=== PATIENT | female | born 1970 | race Hispanic/Latino ===

== ENCOUNTER 2017-02-07 21:25 | Emergency (ER) | payer SELFPAY ==
[2017-02-07 21:48] VITALS: BP 110/78
[2017-02-07 22:04] LABS: Basophils % (Auto) 0.6 % (0.0-1.8); Eosinophils % (Auto) 1.4 % (0.0-4.3); Hematocrit 40.7 % (30.3-42.9); Hemoglobin 14.1 gm/dl (10.1-14.3); Mean Corpuscular HGB Conc 35 % (30-34); Mean Corpuscular Hemoglobin 31 pg (28-32); Mean Corpuscular Volume 88 fl (79-97); Platelet Count 178 K/mm3 (140-440); Red Blood Count 4.62 M/mm3 (3.65-5.03); Red Cell Distribution Width 13.1 % (13.2-15.2); White Blood Count 5.4 K/mm3 (4.5-11.0)
[2017-02-07 22:23] LABS: Anion Gap 16 mmol/L; Blood Urea Nitrogen 17 mg/dL (7-17); Calcium 9.1 mg/dL (8.4-10.2); Carbon Dioxide 27 mmol/L (22-30); Glucose 355 mg/dL (65-100); Potassium 4.2 mmol/L (3.6-5.0); Sodium 135 mmol/L (137-145)
== END 2017-02-07 22:40 | disposition left against medical advice (07) ==
LOC: ED 21:25
DX: R07.9 Chest pain, unspecified (principal); Z53.21 Procedure and treatment not carried out due to patient leaving prior to being seen by health care provider
CPT/HCPCS: 36415; 80048; 84484; 85025; 85379; 93005; 93010

== ENCOUNTER 2017-05-15 12:01 | Emergency (ER) | payer OTHER ==
--- NOTE | 2017-05-15 13:54 | XRay Report ---
LEFT HIP, 2 views: History: Left hip pain. The bony architecture is intact without evidence of fracture or dislocation. No significant soft tissue abnormality is seen. IMPRESSION: Normal left hip.
--- NOTE | 2017-05-15 17:07 | Emergency Department Report ---
ED Back Pain/Injury HPI - General Chief Complaint: Extremity Injury, Lower Stated Complaint: FALL Time Seen by Provider: 05/15/17 16:41 Source: patient Limitations: No Limitations - History of Present Illness Initial Comments: 46-year-old female past medical history hysterectomy, degenerative spinal disease presents with complaint of acute on chronic lower back pain. Denies fever chills abdominal pain nausea or vomiting denies dysuria or increased urinary frequency. Complaining of pain which radiates from her lower back into bilateral buttocks and leg regions. Denies bladder or bowel incontinence. Patient is fully lucid and awake alert and oriented 3. Is ambulatory but complaining of pain in lower back as she walks. States she had a fall 4 days ago. MD Complaint: back pain Onset/Timin -: days(s) Similar Symptoms Previously: Yes Place: home Radiation: buttocks, left leg, right leg Severity: moderate Severity scale (0 -10): 5 Consistency: constant Improves With: none Context: while lifting, turning/twisting, bending, fall Associated Symptoms: difficulty walking - Related Data Home Medications Medication Instructions Recorded Confirmed Last Taken metFORMIN [Glucophage] 500 mg PO DAILY 05/12/14 05/12/14 05/11/14 500 Previous Rx's Medication Instructions Recorded Last Taken Type Cyclobenzaprine [Flexeril] 5 mg PO TID PRN #14 tablet 02/23/13 05/11/14 Rx Hydrocodone Bit/Acetaminophen 1 each PO Q6H #14 tablet 02/23/13 05/11/14 Rx [Lortab 5-500 Tablet] 1 HYDROcodone/APAP 5-325 [[place] 1 each PO Q6HR PRN #20 tablet 05/12/14 Unknown Rx 5-325 mg TAB] Acetaminophen [Pain Relief] 500 mg PO Q8H PRN #30 tablet 05/15/17 Unknown Rx HYDROcodone/APAP 5-325 [[place] 1 each PO Q6HR PRN #15 tablet 05/15/17 Unknown Rx 5/325] Allergies Allergy/AdvReac Type Severity Reaction Status Date / Time aspirin Allergy Anaphylaxis Verified 02/23/13 13:00 ciprofloxacin [From Cipro] Allergy Hives Verified 05/12/14 16:33 ciprofloxacin HCl Allergy Hives Verified 05/12/14 16:33 [From Cipro] ED Review of Systems ROS: Stated complaint: FALL Other details as noted in HPI Constitutional: denies: chills, fever Eyes: denies: eye pain, eye discharge, vision change ENT: denies: ear pain, throat pain Respiratory: denies: cough, shortness of breath, wheezing Cardiovascular: denies: chest pain, palpitations Endocrine: no symptoms reported Gastrointestinal: denies: abdominal pain, nausea, diarrhea Genitourinary: denies: urgency, dysuria, discharge Musculoskeletal: back pain. denies: joint swelling, arthralgia Skin: denies: rash, lesions Neurological: denies: headache, weakness, paresthesias Psychiatric: denies: anxiety, depression Hematological/Lymphatic: denies: easy bleeding, easy bruising ED Past Medical Hx - Past Medical History Hx Heart Attack/AMI: Yes ("heart problems-takes ntg, unsure of dx") Hx Diabetes: Yes Additional medical history: family history of cardiac problems. - Surgical History Additional Surgical History: , laproscopy x2 (ovarian cysts), hysterectomy 03/24 with recurrent infections. - Social History Smoking Status: Never Smoker Substance Use Type: None - Medications Home Medications: Home Medications Medication Instructions Recorded Confirmed Last Taken Type Cyclobenzaprine [Flexeril] 5 mg PO TID PRN #14 tablet 02/23/13 05/12/14 Rx Hydrocodone Bit/Acetaminophen 1 each PO Q6H #14 tablet 02/23/13 05/12/14 Rx [Lortab 5-500 Tablet] 1 HYDROcodone/APAP 5-325 [[place] 1 each PO Q6HR PRN #20 tablet 05/12/14 Unknown Rx 5-325 mg TAB] metFORMIN [Glucophage] 500 mg PO DAILY 05/12/14 05/12/14 05/11/14 History 500 Acetaminophen [Pain Relief] 500 mg PO Q8H PRN #30 tablet 05/15/17 Unknown Rx HYDROcodone/APAP 5-325 [[place] 1 each PO Q6HR PRN #15 tablet 05/15/17 Unknown Rx 5/325] ED Physical Exam - General Limitations: No Limitations General appearance: alert, in no apparent distress - Head Head exam: Present: atraumatic, normocephalic - Eye Eye exam: Present: normal appearance, PERRL, EOMI - ENT ENT exam: Present: mucous membranes moist - Neck Neck exam: Present: normal inspection - Respiratory Respiratory exam: Present: normal lung sounds bilaterally. Absent: respiratory distress - Cardiovascular Cardiovascular Exam: Present: regular rate, normal rhythm. Absent: systolic murmur, diastolic murmur, rubs, gallop - GI/Abdominal GI/Abdominal exam: Present: soft, normal bowel sounds - Rectal Rectal exam: Present: normal rectal tone (strong rectal tone on digital rectal exam) - Extremities Exam Extremities exam: Present: normal inspection - Back Exam Back exam: Present: normal inspection - Neurological Exam Neurological exam: Present: alert, oriented X3, CN II-XII intact, normal gait - Expanded Neurological Exam Expanded Patient oriented to: Present: person, place, time Cranial nerves: EOM's Intact: Normal, Facial Sensation: Normal Cerebellar function: Finger to Nose: Normal, Heel to Diaz: Normal, Romberg: Normal Sensory exam: Upper Extremity Light Touch: Normal, Lower Extremity Light Touch: Normal Motor strength exam: RUE: 5, LUE: 5, RLE: 5, LLE: 5 Best Eye Response (Edison): (4) open spontaneously Best Motor Response (Edison): (6) obeys commands Best Verbal Response (Alonzo): (5) oriented Edison Total: 15 - Psychiatric Psychiatric exam: Present: normal affect, normal mood - Skin Skin exam: Present: warm, dry, intact, normal color. Absent: rash ED Course Vital Signs 05/15/17 05/15/17 05/15/17 12:06 21:20 21:22 Temperature 97.6 F Pulse Rate 107 H 98 H Respiratory 16 17 18 Rate Blood Pressure 118/76 Blood Pressure 120/80 [Left] O2 Sat by Pulse 96 96 Oximetry ED Medical Decision Making - Medical Decision Making A/P: Degenerative disc disease L-spine, acute on chronic lower back pain 1-case discussed with Dr. Hughes who reviewed imaging report with me. Patient has no loss of rectal tone, is ambulatory with a walker. No clinical signs of cauda equina, strength 5/5 bilateral lower extremities. 2-Tylenol when necessary, [place] when necessary 3-follow-up with orthopedics in spine surgery. I gave the patient referrals for follow-up. I advised her to return to the ED for complete loss of bladder or bowel control paralysis or inability to ambulate at all Critical care attestation.: If time is entered above; I have spent that time in minutes in the direct care of this critically ill patient, excluding procedure time. ED Disposition Clinical Impression: Degenerative lumbar spinal stenosis Lower back pain Qualifiers: Chronicity: chronic Back pain laterality: bilateral Sciatica presence: with sciatica Sciatica laterality: bilateral sciatica Qualified Code(s): M54.42 - Lumbago with sciatica, left side Sciatica Qualifiers: Laterality: bilateral Qualified Code(s): M54.31 - Sciatica, right side Disposition: TO HOME OR SELFCARE Is pt being admited?: No Does the pt Need Aspirin: No Condition: Stable Instructions: Sciatica (ED), Acute Low Back Pain (ED), Lumbar Radiculopathy (ED ), Chronic Back Pain (ED), Back Pain (ED) Prescriptions: Acetaminophen [Pain Relief] 500 mg PO Q8H PRN #30 tablet PRN Reason: Pain HYDROcodone/APAP 5-325 [[place] 5/325] 1 each PO Q6HR PRN #15 tablet PRN Reason: Pain Referrals: TOMAS MCRAE MD [Staff Physician] - 3-5 Days [facility] [Provider Group] - 3-5 Days Forms: Accompanied Note, Work/School Release Form(ED) Time of Disposition: 20:52
[2017-05-15] MEDS ORDERED: ZOFRAN ODT PO ONE (17:09)
[2017-05-15] MEDS ORDERED: NORCO 10/325 PO ONE (17:09)
--- NOTE | 2017-05-15 17:58 | Cat Scan Report ---
FINAL REPORT EXAM: CT LUMBAR SPINE WO CON HISTORY: severe lower back pain, hx of herniated disks TECHNIQUE: Spiral high-resolution unenhanced 1.25 millimeter axial images were obtained through the lumbar spine. Sagittal and coronal plane are reconstructions were performed. PRIORS: None. FINDINGS: Counting reference: Lumbosacral junction. For the purposes of this report, L4-L5 is considered the level of the iliac crest. Bone marrow/ Fracture: No evidence for acute fracture is seen. There is fragmentation of the distal tips of the right transverse process of L1 and L3. The margins appear remote however suggesting remote unfused fractures. No evidence of a lytic or blastic process in the visualized spine. Alignment: There is a levoscoliosis centered around L2-L3. T12-L1: Canal and foramina are patent. L1-L2: Canal and foramina are patent. L2-L3: Moderate disc space narrowing is present, particularly on the left side. Subchondral cyst formation is present on both sides of the disc space to the left of midline. This is associated with levoscoliosis mentioned above. Disc also is associated with a disc bulge to the left with mild encroachment of the left neuroforamen. L3-L4: Minimal central disc bulge. Canal and foramina are patent. L4-L5: Minimal central disc bulge. Canal and foramina are patent. L5-S1: Mild disc space narrowing is present with mild central disc bulge. Canal and foramina are patent. Paraspinal soft tissues: The paraspinal soft tissues show no evidence for paravertebral hematoma or soft tissue mass. Sacrum and iliac wings: Visualized portions of the sacrum and iliac wings appear intact without fracture. The presacral soft tissues are normal in appearance. There is incidental 12 x 8 mm ovoid sclerotic focus in the right ilium, probably a bone island. IMPRESSION: 1. No evidence of acute fracture. 2. Evidence for remote fractures in the right transverse process tips at L1 and L3. 3. Disc space abnormalities as noted from L2 through S1. There is significant narrowing to the left at L2-L3 with mild encroachment of the left neural foramina.
--- NOTE | 2017-05-15 18:01 | Cat Scan Report ---
FINAL REPORT EXAM: CT PELVIS WO CON HISTORY: s/p fall pain in sacral region ? fracture TECHNIQUE: Standard unenhanced CT of the pelvis at 2.5 mm axial increments PRIORS: L-spine CT 05/15/2017 FINDINGS: The visualized pelvic organs are unremarkable. The bladder is normal. The uterus has been removed. Moderate stool is present throughout the visualized colon. No evidence for retroperitoneal or pelvic lymphadenopathy seen. The visualized bowel loops have normal caliber. No soft tissue mass, fluid collection, inflammatory change, or free air is seen within the pelvis. Bony structures show a focal rounded sclerotic 1.2 x 1.3 cm focus in the right ilium. This probably represents a small bone island. Degenerative disc changes at L5-S1 are noted.. IMPRESSION: No acute abnormality of the pelvis. No evidence for fracture. Small sclerotic focus in the right ilium is probably a bone island.
[2017-05-15] MEDS ORDERED: NORCO 5/325 PO ONE (20:53)
[2017-05-16 05:42] VITALS: BP 120/80
== END 2017-05-15 21:20 | disposition home or self-care (01) ==
LOC: ED 12:01
DX: M48.061 Spinal stenosis, lumbar region without neurogenic claudication (principal); M54.42 Lumbago with sciatica, left side; M54.41 Lumbago with sciatica, right side; S39.92XA Unspecified injury of lower back, initial encounter; I25.2 Old myocardial infarction; E11.9 Type 2 diabetes mellitus without complications; Z88.6 Allergy status to analgesic agent; Z88.1 Allergy status to other antibiotic agents; W19.XXXA Unspecified fall, initial encounter; Y93.89 Activity, other specified; Y92.89 Other specified places as the place of occurrence of the external cause; Y99.8 Other external cause status
CPT/HCPCS: 72131; 72192; 99284; Q0162

== ENCOUNTER 2017-12-17 21:41 | Emergency (ER) | payer SELFPAY ==
--- NOTE | 2017-12-17 23:17 | XRay Report ---
FINAL REPORT EXAM: XR TOE(S) 2+V LT HISTORY: left toe pain s/p trauma TECHNIQUE: PRIORS: None. FINDINGS: No fracture is identified. The joint spaces are within normal limits. No focal bony lesion identified. No radiopaque foreign body seen. IMPRESSION: Negative no acute abnormality.
[2017-12-18] MEDS ORDERED: TYLENOL PO ONE (02:45)
--- NOTE | 2017-12-18 02:48 | Emergency Department Report ---
ED Lower Extremity HPI - General Chief Complaint: Extremity Injury, Lower Stated Complaint: ANXIETY Time Seen by Provider: 12/18/17 02:33 Source: patient, EMS Mode of arrival: Ambulatory Limitations: No Limitations - History of Present Illness Initial Comments: This is a 47-year-old female nontoxic, well nourished in appearance, no acute signs of distress presents to the ED with c/o of left great toe pain x2 days. Patient stated that a tree branch fell on her toe. Patient denies any other trauma. Patient denies any numbness, tingling, fever, chills, nausea, vomiting , chest pain, shortness of breath, headache, stiff neck. Patient denies any joint swelling or joint redness. Patient denies decreased range of motion. Patient stated has decreased gait due to pain. Patient stated allergies to Cipro and aspirin. PMh includes asthma, diabetes, [place], anxiety. Patient that she feels anxious but denies any suicidal homicidal medications. MD Complaint: foot injury -: days(s) (2) Injury: Toes: Left Type of Injury: blunt Place: street/outdoors Severity: mild Severity scale (0 -10): 8 Improves With: immobilization Worsens With: movement, palpation Context: direct blow Associated Symptoms: able to partially bear weight, ambulatory. denies: snap/ pop sensation, swelling, numbness, tingling, unable to bear weight - Related Data Home Medications Medication Instructions Recorded Confirmed Last Taken metFORMIN [Glucophage] 500 mg PO DAILY 05/12/14 05/12/14 05/11/14 500 Previous Rx's Medication Instructions Recorded Last Taken Type Cyclobenzaprine [Flexeril] 5 mg PO TID PRN #14 tablet 02/23/13 05/11/14 Rx Hydrocodone Bit/Acetaminophen 1 each PO Q6H #14 tablet 02/23/13 05/11/14 Rx [Lortab 5-500 Tablet] 1 HYDROcodone/APAP 5-325 [[place] 1 each PO Q6HR PRN #20 tablet 05/12/14 Unknown Rx 5-325 mg TAB] Acetaminophen [Pain Relief] 500 mg PO Q8H PRN #30 tablet 05/15/17 Unknown Rx HYDROcodone/APAP 5-325 [[place] 1 each PO Q6HR PRN #15 tablet 05/15/17 Unknown Rx 5/325] Acetaminophen 500 mg PO Q8H PRN #30 tablet 12/18/17 Unknown Rx Cyclobenzaprine HCl [Flexeril 5 MG 5 mg PO QHS #10 tab 12/18/17 Unknown Rx TAB] Sulfamethoxazole/Trimethoprim 1 each PO BID #14 tablet 12/18/17 Unknown Rx [Bactrim DS TAB] Allergies Allergy/AdvReac Type Severity Reaction Status Date / Time aspirin Allergy Anaphylaxis Verified 12/17/17 22:33 ciprofloxacin [From Cipro] Allergy Hives Verified 12/17/17 22:33 ciprofloxacin HCl Allergy Hives Verified 12/17/17 22:33 [From Cipro] ED Review of Systems ROS: Stated complaint: ANXIETY Other details as noted in HPI Constitutional: denies: chills, fever Eyes: denies: eye pain, eye discharge, vision change ENT: denies: ear pain, throat pain Respiratory: denies: cough, shortness of breath, wheezing Cardiovascular: denies: chest pain, palpitations Endocrine: no symptoms reported Gastrointestinal: denies: abdominal pain, nausea, diarrhea Genitourinary: denies: urgency, dysuria, discharge Musculoskeletal: denies: back pain, joint swelling, arthralgia Skin: denies: rash, lesions Neurological: denies: headache, weakness, paresthesias Psychiatric: denies: anxiety, depression Hematological/Lymphatic: denies: easy bleeding, easy bruising ED Past Medical Hx - Past Medical History Hx Heart Attack/AMI: Yes ("heart problems-takes ntg, unsure of dx") Hx Diabetes: Yes Hx Psychiatric Treatment: Yes (anxiety) Hx Asthma: Yes Additional medical history: family history of cardiac problems, endometriosis - Surgical History Additional Surgical History: , laproscopy x2 (ovarian cysts), hysterectomy 03/24 with recurrent infections. - Social History Smoking Status: Never Smoker Substance Use Type: None - Medications Home Medications: Home Medications Medication Instructions Recorded Confirmed Last Taken Type Cyclobenzaprine [Flexeril] 5 mg PO TID PRN #14 tablet 02/23/13 05/12/14 Rx Hydrocodone Bit/Acetaminophen 1 each PO Q6H #14 tablet 02/23/13 05/12/14 Rx [Lortab 5-500 Tablet] 1 HYDROcodone/APAP 5-325 [[place] 1 each PO Q6HR PRN #20 tablet 05/12/14 Unknown Rx 5-325 mg TAB] metFORMIN [Glucophage] 500 mg PO DAILY 05/12/14 05/12/14 05/11/14 History 500 Acetaminophen [Pain Relief] 500 mg PO Q8H PRN #30 tablet 05/15/17 Unknown Rx HYDROcodone/APAP 5-325 [[place] 1 each PO Q6HR PRN #15 tablet 05/15/17 Unknown Rx 5/325] Acetaminophen 500 mg PO Q8H PRN #30 tablet 12/18/17 Unknown Rx Cyclobenzaprine HCl [Flexeril 5 MG 5 mg PO QHS #10 tab 12/18/17 Unknown Rx TAB] Sulfamethoxazole/Trimethoprim 1 each PO BID #14 tablet 12/18/17 Unknown Rx [Bactrim DS TAB] ED Physical Exam - General Limitations: No Limitations General appearance: alert, in no apparent distress - Head Head exam: Present: atraumatic, normocephalic - Eye Eye exam: Present: normal appearance - ENT ENT exam: Present: mucous membranes moist - Neck Neck exam: Present: normal inspection - Respiratory Respiratory exam: Present: normal lung sounds bilaterally. Absent: respiratory distress - Cardiovascular Cardiovascular Exam: Present: regular rate, normal rhythm. Absent: systolic murmur, diastolic murmur, rubs, gallop - GI/Abdominal GI/Abdominal exam: Present: soft, normal bowel sounds - Extremities Exam Extremities exam: Present: normal inspection, full ROM, tenderness, normal capillary refill. Absent: joint swelling - Expanded Lower Extremity Exam Left Hip exam: Present: normal inspection, full ROM. Absent: tenderness, swelling Upper Leg exam: Present: normal inspection, full ROM. Absent: tenderness, swelling Knee exam: Present: normal inspection, full ROM. Absent: tenderness, swelling Lower Leg exam: Present: normal inspection, full ROM. Absent: tenderness, swelling Ankle exam: Present: normal inspection, full ROM. Absent: tenderness, swelling Foot/Toe exam: Present: normal inspection, full ROM, tenderness, ecchymosis. Absent: swelling, abrasion, laceration, deformity, crepidus, dislocation, erythema, amputation, puncture wound, foreign body, calcaneal tenderness, tenderness at base of 5th metatarsal, nail avulsion, subungual hematoma Neuro vascular tendon exam: Present: no vascular compromise. Absent: pulse deficit, abnormal cap refill, motor deficit, sensory deficit, tendon deficit, extremity cold to touch, pallor, abnormal 2-point discrimination, decreased fine /light touch, foot drop, peroneal nerve deficit, significant pain with passive ROM of distal joint Gait: Positive: observed and limited by pain - Back Exam Back exam: Present: normal inspection, full ROM. Absent: tenderness - Neurological Exam Neurological exam: Present: alert, oriented X3, normal gait - Psychiatric Psychiatric exam: Present: normal affect, normal mood - Skin Skin exam: Present: warm, dry, intact, normal color. Absent: rash ED Course Vital Signs 12/17/17 21:40 Temperature 98.5 F Pulse Rate 94 H Respiratory 20 Rate Blood Pressure 128/74 O2 Sat by Pulse 97 Oximetry - Reevaluation(s) Reevaluation #1: 12/18/17 02:49 Patient is speaking in full sentences with no signs of distress noted. - Consultations Consultation #1: 12/18/17 02:51 Eduardo from Psych was consulted and spoke with patient. Stated patient is okay to discharge and gave follow-up for anxiety/psych consult. ED Lower Extremity MDM - Medical Decision Making This is a 47-year-old female that presents with left great toe strain. Patient is stable and was examined by me. I referred patient to an orthopedic doctor for further evaluation for possible MRI. X-ray has been obtained and dictated by the radiologist. Patient is notified of the x-ray report with noted by the patient. Patient does have normal gait with no tenderness and no joint swelling. No ecchymosis. no joint redness or swelling. Not warm to touch. No signs of cellulites present. Patient was instructed to RICE therapy. Patient received Tylenol for pain. Patient is discharged with Tylenol. Patient also requested for Flexeril prescription because she has chronic back pain and she will be moving and that is when her back starts to hurt. At time of discharge, the patient does not seem toxic or ill in appearance. No acute signs of distress noted. Patient agrees to discharge treatment plan of care. No further questions noted by the patient. Critical care attestation.: If time is entered above; I have spent that time in minutes in the direct care of this critically ill patient, excluding procedure time. ED Disposition Clinical Impression: Strain of great toe, left Qualifiers: Encounter type: initial encounter Qualified Code(s): S96.912A - Strain of unspecified muscle and tendon at ankle and foot level, left foot, initial encounter Disposition: DC-01 TO HOME OR SELFCARE Is pt being admited?: No Does the pt Need Aspirin: No Condition: Stable Instructions: RICE Therapy (ED) Additional Instructions: Follow-up with a orthopedic doctor in 3-5 days or if symptoms worsen and continue return to emergency room as soon as possible. Take Flexeril as prescribed. Do not operate heavy machinery while taking Flexeril due to sedation Prescriptions: Cyclobenzaprine HCl [Flexeril 5 MG TAB] 5 mg PO QHS #10 tab Acetaminophen 500 mg PO Q8H PRN #30 tablet PRN Reason: Pain , Severe (7-10) Sulfamethoxazole/Trimethoprim [Bactrim DS TAB] 1 each PO BID #14 tablet Referrals: PRIMARY CAREMD [Primary Care Provider] - 3-5 Days ROSANNA KNOWLES MD [Staff Physician] - 3-5 Days [facility] [Outside] - 3-5 Days BRYNN LEYVA MD [Staff Physician] - 3-5 Days Forms: Work/School Release Form(ED)
[2017-12-18 02:50] VITALS: BP 128/74
== END 2017-12-18 02:55 | disposition home or self-care (01) ==
LOC: ED 21:41
DX: S96.912A Strain of unspecified muscle and tendon at ankle and foot level, left foot, initial encounter (principal); F41.9 Anxiety disorder, unspecified; E11.9 Type 2 diabetes mellitus without complications; J45.909 Unspecified asthma, uncomplicated; Z88.6 Allergy status to analgesic agent; Z88.8 Allergy status to other drugs, medicaments and biological substances; W14.XXXA Fall from tree, initial encounter; Y93.89 Activity, other specified; Y92.89 Other specified places as the place of occurrence of the external cause; Y99.8 Other external cause status
CPT/HCPCS: 99284

== ENCOUNTER 2018-01-13 13:59 | Emergency (ER) | payer SELFPAY ==
[2018-01-13] MEDS ORDERED: NACL 0.9% 1000 ML 1,000 ML IV ONE ×4 (14:32→17:55)
[2018-01-13] MEDS ORDERED: NITROSTAT SL PRN (14:33)
[2018-01-13] MEDS ORDERED: TYLENOL PO ONE (14:33)
[2018-01-13] MEDS ORDERED: ANTIVERT PO ONE (14:34)
--- NOTE | 2018-01-13 14:36 | Emergency Department Report ---
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 Patient presents to the ER today with complaint of chest pain and almost passing out. She reports that she was in her usual state of health, and donated plasma a few days ago. She reports feeling fine thereafter. Today, she reports standing up , waiting for a bus, and feeling like her vision was changing, and feeling like her vision was "briseyda out." She also endorses a sensation of generalized dizziness, near syncope, and fatigue. She also complains of epigastric and substernal pain, with associated shortness of breath. There is no vomiting or diaphoresis. She denies DVT, pulmonary embolus risk factors. Her symptoms are intermittent, they seem to worsen when she sits up, and decrease when she lays down. Her chest/epigastric abdominal discomfort do not appear to have exacerbating or relieving factors and they do not radiate anywhere. -: Gradual Location: chest, abdomen Radiation: non-radiation Quality: aching Consistency: intermittent Improves with: other Worsens with: other Associated Symptoms: chest pain, headaches, loss of appetite, malaise, nausea/ vomiting, shortness of breath, syncope, weakness. denies: confusion, cough, diaphoresis, fever/chills, rash, seizure - Related Data Home Medications Medication Instructions Recorded Confirmed Last Taken metFORMIN [Glucophage] 500 mg PO DAILY 05/12/14 05/12/14 05/11/14 500 Previous Rx's Medication Instructions Recorded Last Taken Type Cyclobenzaprine [Flexeril] 5 mg PO TID PRN #14 tablet 02/23/13 05/11/14 Rx Hydrocodone Bit/Acetaminophen 1 each PO Q6H #14 tablet 02/23/13 05/11/14 Rx [Lortab 5-500 Tablet] 1 HYDROcodone/APAP 5-325 [[place] 1 each PO Q6HR PRN #20 tablet 05/12/14 Unknown Rx 5-325 mg TAB] Acetaminophen [Pain Relief] 500 mg PO Q8H PRN #30 tablet 05/15/17 Unknown Rx HYDROcodone/APAP 5-325 [[place] 1 each PO Q6HR PRN #15 tablet 05/15/17 Unknown Rx 5/325] Acetaminophen 500 mg PO Q8H PRN #30 tablet 12/18/17 Unknown Rx Cyclobenzaprine HCl [Flexeril 5 MG 5 mg PO QHS #10 tab 12/18/17 Unknown Rx TAB] Sulfamethoxazole/Trimethoprim 1 each PO BID #14 tablet 12/18/17 Unknown Rx [Bactrim DS TAB] Allergies Allergy/AdvReac Type Severity Reaction Status Date / Time aspirin Allergy Anaphylaxis Verified 12/17/17 22:33 ciprofloxacin [From Cipro] Allergy Hives Verified 12/17/17 22:33 ciprofloxacin HCl Allergy Hives Verified 12/17/17 22:33 [From Cipro] ED Review of Systems ROS: Stated complaint: WEAKNESS/CHEST PAIN Other details as noted in HPI Comment: All other systems reviewed and negative ED Past Medical Hx - Past Medical History Previous Medical History?: Yes Hx Heart Attack/AMI: Yes ("heart problems-takes ntg, unsure of dx") Hx Diabetes: Yes Hx Psychiatric Treatment: Yes (anxiety) Hx Asthma: Yes Additional medical history: family history of cardiac problems, endometriosis - Surgical History Past Surgical History?: Yes Additional Surgical History: , laproscopy x2 (ovarian cysts), hysterectomy 03/24 with recurrent infections. - Social History Smoking Status: Never Smoker - Medications Home Medications: Home Medications Medication Instructions Recorded Confirmed Last Taken Type Cyclobenzaprine [Flexeril] 5 mg PO TID PRN #14 tablet 02/23/13 05/12/14 Rx Hydrocodone Bit/Acetaminophen 1 each PO Q6H #14 tablet 02/23/13 05/12/14 Rx [Lortab 5-500 Tablet] 1 HYDROcodone/APAP 5-325 [[place] 1 each PO Q6HR PRN #20 tablet 05/12/14 Unknown Rx 5-325 mg TAB] metFORMIN [Glucophage] 500 mg PO DAILY 05/12/14 05/12/14 05/11/14 History 500 Acetaminophen [Pain Relief] 500 mg PO Q8H PRN #30 tablet 05/15/17 Unknown Rx HYDROcodone/APAP 5-325 [[place] 1 each PO Q6HR PRN #15 tablet 05/15/17 Unknown Rx 5/325] Acetaminophen 500 mg PO Q8H PRN #30 tablet 12/18/17 Unknown Rx Cyclobenzaprine HCl [Flexeril 5 MG 5 mg PO QHS #10 tab 12/18/17 Unknown Rx TAB] Sulfamethoxazole/Trimethoprim 1 each PO BID #14 tablet 12/18/17 Unknown Rx [Bactrim DS TAB] ED Physical Exam - General Limitations: No Limitations General appearance: alert, in no apparent distress - Head Head exam: Present: atraumatic, normocephalic - Eye Eye exam: Present: normal appearance, PERRL, EOMI, other (visual acuity intact to finger counting, color perception, reading at a close distance). Absent: nystagmus - ENT ENT exam: Present: normal exam, normal orophraynx, mucous membranes moist, normal external ear exam - Neck Neck exam: Present: normal inspection, full ROM. Absent: tenderness, meningismus - Respiratory Respiratory exam: Present: normal lung sounds bilaterally. Absent: respiratory distress, chest wall tenderness - Cardiovascular Cardiovascular Exam: Present: regular rate, normal rhythm, normal heart sounds. Absent: bradycardia, tachycardia, irregular rhythm, systolic murmur, diastolic murmur, rubs, gallop - GI/Abdominal GI/Abdominal exam: Present: soft, normal bowel sounds. Absent: distended, tenderness, guarding, rebound, rigid, pulsatile mass - Extremities Exam Extremities exam: Present: normal inspection, full ROM, normal capillary refill , other (2+ pulses noted in the bilateral upper, lower extremities. Compartments soft. No long bony tenderness. The pelvis is stable.). Absent: tenderness, pedal edema, joint swelling, calf tenderness - Back Exam Back exam: Present: normal inspection, full ROM. Absent: tenderness, CVA tenderness (R), paraspinal tenderness, vertebral tenderness - Neurological Exam Neurological exam: Present: alert, oriented X3, CN II-XII intact (there is no pass pointing. There is normal [id number].), other (Extraocular movements intact. Tongue midline. No facial droop. Facial sensation intact to light touch in the V1, V2, V3 distribution bilaterally. 5 and 5 strength in 4 extremities.. Sensation is intact to light touch in 4 extremities.). Absent: motor sensory deficit - Psychiatric Psychiatric exam: Present: anxious - Skin Skin exam: Present: warm, dry, intact, normal color. Absent: rash ED Course Vital Signs 01/13/18 01/13/18 01/13/18 14:14 14:15 14:24 Pulse Rate 84 87 89 Respiratory 15 10 L 18 Rate Blood Pressure 107/64 107/64 O2 Sat by Pulse 98 98 Oximetry 01/13/18 01/13/18 01/13/18 14:30 14:45 15:01 Pulse Rate 91 H 87 Respiratory 17 14 Rate Blood Pressure 107/75 107/64 113/57 O2 Sat by Pulse 97 99 Oximetry 01/13/18 15:35 Pulse Rate Respiratory 14 Rate Blood Pressure O2 Sat by Pulse Oximetry - Reevaluation(s) Reevaluation #1: 01/13/18 15:16 Differential diagnosis, including but not limited to: Structural cardiac disease , orthostasis, vagal event, electrolyte derangement, pulmonary embolus, acute coronary syndrome GERD, gastritis, pancreatitis, dehydration Assessment and plan: 47-year-old female complaining of epigastric discomfort, substernal chest discomfort, near syncope, shortness of breath. He has an NIH score of 0. GCS of 15. Orthostatics, CT scan of the brain, laboratory studies pending. Patient reports no pulmonary embolus or DVT risk factors, is low risk by well's criteria, and thus far is perc negative Reevaluation #2: 01/13/18 15:49 Laboratory studies show profound hyperglycemia without anion gap acidosis. IV fluids, insulin ordered. D-dimer is negative. X-ray of the chest is negative. CT scan of the brain is pending. Dr. Philip, the hospital physician tentatively excepted the patient and assuming no intracranial pathology that would require emergent transfer. ED Medical Decision Making - Lab Data Result diagrams: 01/13/18 14:47 01/13/18 14:47 Vital Signs 01/13/18 14:24 Pulse Rate 89 Respiratory 18 Rate Blood Pressure 107/64 O2 Sat by Pulse 98 Oximetry Lab Results 01/13/18 Range/Units 14:47 WBC 5.0 (4.5-11.0) K/mm3 RBC 4.62 (3.65-5.03) M/mm3 Hgb 14.3 (10.1-14.3) gm/dl Hct 42.3 (30.3-42.9) % MCV 92 (79-97) fl MCH 31 (28-32) pg MCHC 34 (30-34) % RDW 12.9 L (13.2-15.2) % Plt Count 130 L (140-440) K/mm3 Lymph % (Auto) 29.8 (13.4-35.0) % Lyon % (Auto) 6.0 (0.0-7.3) % Eos % (Auto) 0.6 (0.0-4.3) % Baso % (Auto) 0.3 (0.0-1.8) % Lymph # 1.5 (1.2-5.4) K/mm3 Lyon # 0.3 (0.0-0.8) K/mm3 Eos # 0.0 (0.0-0.4) K/mm3 Baso # 0.0 (0.0-0.1) K/mm3 Seg Neutrophils % 63.3 (40.0-70.0) % Seg Neutrophils # 3.2 (1.8-7.7) K/mm3 - EKG Data 01/13/18 15:15 Normal sinus, 80 minute, left axis deviation, left anterior fascicular block, QTC prolonged, abnormal EKG, not a STEMI. Compared to prior EKG, left axis deviation is old, left anterior fascicular block is old, appears unchanged from prior EKG from March 2017 - Radiology Data Radiology results: image reviewed interpreted by me: x-ray of the chest, interpreted by me, no acute disease Critical care attestation.: If time is entered above; I have spent that time in minutes in the direct care of this critically ill patient, excluding procedure time. ED Disposition Clinical Impression: Chest pain, Near syncope Disposition: OP ADMIT IP TO THIS HOSP Is pt being admited?: Yes Does the pt Need Aspirin: Yes (give aspirin only if ct head negative) Condition: Good Instructions: Chest Pain (ED) Referrals: PRIMARY CARE, [Primary Care Provider] - 3-5 Days
[2018-01-13 15:08] LABS: Basophils % (Auto) 0.3 % (0.0-1.8); Eosinophils % (Auto) 0.6 % (0.0-4.3); Hematocrit 42.3 % (30.3-42.9); Hemoglobin 14.3 gm/dl (10.1-14.3); Lymphocytes # (Auto) 1.5 K/mm3 (1.2-5.4); Lymphocytes % (Auto) 29.8 % (13.4-35.0); Mean Corpuscular HGB Conc 34 % (30-34); Mean Corpuscular Hemoglobin 31 pg (28-32); Mean Corpuscular Volume 92 fl (79-97); Monocytes # (Auto) 0.3 K/mm3 (0.0-0.8); Platelet Count 130 K/mm3 (140-440); Red Blood Count 4.62 M/mm3 (3.65-5.03); Red Cell Distribution Width 12.9 % (13.2-15.2)
[2018-01-13 15:16] LABS: INR 1.58 (0.87-1.13); Thrombin Time 29.3 Sec. (15.1-19.6)
[2018-01-13 15:17] LABS: Partial Thromboplastin Time 41.8 Sec. (24.2-36.6)
[2018-01-13 15:19] LABS: Creatine Kinase MB 1.6 ng/mL (0.0-4.0)
[2018-01-13 15:22] LABS: Alanine Aminotransferase 11 units/L (7-56); Albumin 3.4 g/dL (3.9-5); BUN/Creatinine Ratio 22; Blood Urea Nitrogen 11 mg/dL (7-17); Calcium 8.1 mg/dL (8.4-10.2); Hemolysis Index 12
[2018-01-13] MEDS ORDERED: HumuLIN R IV ONE (15:40)
--- NOTE | 2018-01-13 15:47 | XRay Report ---
FINAL REPORT EXAM: XR CHEST 1V AP HISTORY: cp TECHNIQUE: Frontal chest x-ray. PRIORS: None currently available. FINDINGS: Cardiac silhouette is within normal limits. There is no effusion. There is no pneumothorax. There is no consolidation. There are no suspicious osseous lesions. IMPRESSION: No acute cardiopulmonary findings.
--- NOTE | 2018-01-13 15:58 | Event Note ---
Date: 01/13/18
--- NOTE | 2018-01-13 16:46 | Cat Scan Report ---
FINAL REPORT EXAM: CT HEAD/BRAIN WO CON HISTORY: Stroke symptoms TECHNIQUE: CT of the Head without IV contrast. PRIORS: None currently available. FINDINGS: There is no evidence for acute ischemia. There is no hemorrhage. There is no midline shift. There is no hydrocephalus. There is no mass. Age appropriate snider-white matter attenuation is noted. There is no calvarial fracture. The temporal bones demonstrate aerated mastoid air cells. The middle ears appear unremarkable. Paranasal sinuses are unremarkable. Globes are intact. IMPRESSION: No acute intracranial findings.
--- NOTE | 2018-01-13 17:53 | Consultation ---
History of Present Illness - Reason for Consult Consult date: 01/13/18 Requesting physician: DARLIN ZHENG - History of Present Illness 47 YO Female with DM, Anxiety, Asthma, Endometriosis presents to ED for evaluation of dizzyness. Pt states that she has donated plasma twice in the pst 3 days. Pt states that her last donation was today. Pt states that she experienced near syncope. Pt seen and evaluated in ED and found to have hyperglycemia, and volume depletion. Pt denies chest pain but acknowledges feeling anxious and having a rapid heart rate when she got dizzy. Pt treated with IVF resuscitation, and insulin therapy. Pt medically optimized and back to usual state of health. Pt discharged home and instructed to f/u pcp 1 wk with glucose log three times daily. Past History Past Medical History: diabetes Past Surgical History: Social history: single Family history: no significant family history (reviewed) Medications and Allergies Allergies Allergy/AdvReac Type Severity Reaction Status Date / Time aspirin Allergy Anaphylaxis Verified 12/17/17 22:33 ciprofloxacin [From Cipro] Allergy Hives Verified 12/17/17 22:33 ciprofloxacin HCl Allergy Hives Verified 12/17/17 22:33 [From Cipro] Home Medications Medication Instructions Recorded Confirmed Last Taken Type Cyclobenzaprine [Flexeril] 5 mg PO TID PRN #14 tablet 02/23/13 05/12/14 Rx Hydrocodone Bit/Acetaminophen 1 each PO Q6H #14 tablet 02/23/13 05/12/14 Rx [Lortab 5-500 Tablet] 1 HYDROcodone/APAP 5-325 [[place] 1 each PO Q6HR PRN #20 tablet 05/12/14 Unknown Rx 5-325 mg TAB] metFORMIN [Glucophage] 500 mg PO DAILY 05/12/14 05/12/14 05/11/14 History 500 Acetaminophen [Pain Relief] 500 mg PO Q8H PRN #30 tablet 05/15/17 Unknown Rx HYDROcodone/APAP 5-325 [[place] 1 each PO Q6HR PRN #15 tablet 05/15/17 Unknown Rx 5/325] Acetaminophen 500 mg PO Q8H PRN #30 tablet 12/18/17 Unknown Rx Cyclobenzaprine HCl [Flexeril 5 MG 5 mg PO QHS #10 tab 12/18/17 Unknown Rx TAB] Sulfamethoxazole/Trimethoprim 1 each PO BID #14 tablet 12/18/17 Unknown Rx [Bactrim DS TAB] Insulin NPH/Regular [Novolin 70/30] 15 unit SQ BIDDIAB #1 vial 01/13/18 Unknown Rx Syringe-Needle,Insulin,0.5 ml 1 each MC BID #1 box 01/13/18 Unknown Rx [Insulin Syringe/Needle 0.5 ML] Active Meds: Active Medications Nitroglycerin (Nitrostat) 0.4 mg SL .Q5MIN PRN PRN Reason: Chest Pain Review of Systems Constitutional: other (dizziness), no weight loss, no weight gain, no fever, no chills Ears, nose, mouth and throat: no ear pain, no ear discharge, no tinnitis, no nose pain, no nasal congestion Breasts: no change in shape, no swelling, no mass Cardiovascular: no chest pain, no orthopnea, no palpitations, no rapid/ irregular heart beat, no edema Respiratory: no cough, no cough with sputum, no excessive sputum, no hemoptysis , no shortness of breath Gastrointestinal: no nausea, no vomiting, no diarrhea Genitourinary Female: no dysmenorrhea, no pelvic pain, no flank pain, no menorrhagia, no dysuria Rectal: no pain, no incontinence, no bleeding Musculoskeletal: no neck stiffness, no neck pain, no shooting arm pain, no low back pain, no shooting leg pain Integumentary: no rash, no pruritis, no redness, no sores, no wounds Neurological: no paralysis, no weakness, no parathesias, no numbness, no tingling Psychiatric: no anxiety, no memory loss, no change in sleep habits, no sleep disturbances, no insomnia, no hypersomnia, no change in appetite Endocrine: polyphagia, excessive thirst, polydipsia, polyuria, nocturia, no cold intolerance, no heat intolerance Hematologic/Lymphatic: no easy bruising, no lymphadenopathy, no lymphedema Allergic/Immunologic: no urticaria, no allergic rhinitis, no wheezing Exam - Constitutional Vitals: Temp Pulse Resp BP Pulse Ox 98.7 F 83 12 125/83 95 01/13/18 14:45 01/13/18 17:30 01/13/18 17:30 01/13/18 17:30 01/13/18 17:30 General appearance: Present: no acute distress, well-nourished - EENT Eyes: Present: PERRL ENT: hearing intact, clear oral mucosa - Neck Neck: Present: supple, normal ROM - Respiratory Respiratory effort: normal Respiratory: bilateral: CTA - Cardiovascular Heart Sounds: Present: S1 & S2. Absent: rub, click - Extremities Extremities: pulses symmetrical, No edema Peripheral Pulses: within normal limits - Abdominal General gastrointestinal: Present: soft, non-tender, non-distended, normal bowel sounds Female genitourinary: Present: normal - Integumentary Integumentary: Present: clear, warm, dry - Musculoskeletal Musculoskeletal: gait normal, strength equal bilaterally - Psychiatric Psychiatric: appropriate mood/affect, intact judgment & insight - Neurologic Neurologic: CNII-XII intact, moves all extremities Results - Labs CBC & Chem 7: 01/13/18 14:47 01/13/18 14:47 Labs: Abnormal lab results 01/13/18 01/13/18 01/13/18 Range/Units 14:47 14:47 14:47 RDW 12.9 L (13.2-15.2) % Plt Count 130 L (140-440) K/mm3 PT 19.8 H (12.2-14.9) Sec. INR 1.58 H (0.87-1.13) APTT 41.8 H (24.2-36.6) Sec. Thrombin Time 29.3 H (15.1-19.6) Sec. Sodium 135 L (137-145) mmol/L Creatinine 0.5 L (0.7-1.2) mg/dL Glucose 514 H* (65-100) mg/dL POC Glucose (70-105) Calcium 8.1 L (8.4-10.2) mg/dL Total Protein 5.6 L (6.3-8.2) g/dL Albumin 3.4 L (3.9-5) g/dL 01/13/18 Range/Units 16:04 RDW (13.2-15.2) % Plt Count (140-440) K/mm3 PT (12.2-14.9) Sec. INR (0.87-1.13) APTT (24.2-36.6) Sec. Thrombin Time (15.1-19.6) Sec. Sodium (137-145) mmol/L Creatinine (0.7-1.2) mg/dL Glucose (65-100) mg/dL POC Glucose 416 H (70-105) Calcium (8.4-10.2) mg/dL Total Protein (6.3-8.2) g/dL Albumin (3.9-5) g/dL Assessment and Plan - Patient Problems (1) Dizziness Current Visit: Yes Status: Acute Plan to address problem: CT Head unremarkable. Pt discharged home instructed to f/u pcp (2) Volume depletion Current Visit: Yes Status: Acute Plan to address problem: IVF resuscitation, (3) Diabetes Current Visit: Yes Status: Acute Plan to address problem: AD diet, insulin, accu check, glucose log TID, f/u pcp 1wk, Carbohydrate counting daily
[2018-01-13] MEDS ORDERED: HumuLIN R SUB-Q ONE (18:16)
[2018-01-13 20:27] VITALS: BP 121/76
== END 2018-01-13 20:15 | disposition admitted as inpatient to this hospital (09) ==
LOC: ED 13:59
DX: R07.89 Other chest pain (principal); R55 Syncope and collapse; R10.13 Epigastric pain; I25.2 Old myocardial infarction; E11.9 Type 2 diabetes mellitus without complications; J45.909 Unspecified asthma, uncomplicated; Z90.710 Acquired absence of both cervix and uterus; Z88.6 Allergy status to analgesic agent; Z88.1 Allergy status to other antibiotic agents
CPT/HCPCS: 36415; 70450; 71045; 80053; 82550; 82553; 82962; 83735; 84484; 85025; 85379; 85610; 85670; 85730; 93005; 93010; 96361; 96372; 96374; 99285; J7030; J1815

== ENCOUNTER 2021-07-02 14:39 | Emergency (ER) | payer SELFPAY ==
[2021-07-02] MEDS ORDERED: ONDANSETRON 4 MG/2 ML INJ IM ONE (16:14)
[2021-07-02] MEDS ORDERED: MORPHINE 4 MG/1 ML INJ IM ONE (16:14)
--- NOTE | 2021-07-02 16:17 | Emergency Department Report ---
ED General Adult HPI - General Chief complaint: Extremity Injury, Lower Stated complaint: left foot numbness Time Seen by Provider: 07/02/21 15:54 Source: EMS Mode of arrival: Stretcher Limitations: No Limitations - History of Present Illness Initial comments: Patient is 50 years old female with history of cauda equina multiple back surgery secondary to degenerative disc disease. Patient presented to the ER complaining of lower back pain after she fell 3 days ago. Patient stated that she was walking when she tripped and fell. Patient denied any head injury, neck injury, chest injury or extremity injuries. Her main complaint is lower back pain. Patient denied any focal weakness, numbness or tingling sensation. She also denied any loss of bowel or bladder control. She denied any saddle anesthesia. - Related Data Previous Rx's Medication Instructions Recorded Last Taken Type Acetaminophen 500 mg PO Q8H PRN #30 tablet 12/18/17 Unknown Rx Cyclobenzaprine HCl [Flexeril 5 MG 5 mg PO QHS #10 tab 12/18/17 Unknown Rx TAB] predniSONE [Deltasone] 20 mg PO DAILY #5 tablet 05/11/18 Unknown Rx Allergies Allergy/AdvReac Type Severity Reaction Status Date / Time aspirin Allergy Anaphylaxis Verified 07/02/21 18:18 ciprofloxacin [From Cipro] Allergy Hives Verified 07/02/21 18:18 ciprofloxacin HCl Allergy Hives Verified 07/02/21 18:18 [From Cipro] ED Review of Systems ROS: Stated complaint: left foot numbness Other details as noted in HPI Comment: All other systems reviewed and negative Constitutional: denies: chills, fever Respiratory: denies: cough, shortness of breath, SOB with exertion, SOB at rest Cardiovascular: denies: chest pain, palpitations Gastrointestinal: denies: abdominal pain, nausea, vomiting, diarrhea Musculoskeletal: denies: back pain Neurological: denies: headache, weakness, numbness, paresthesias, confusion ED Past Medical Hx - Past Medical History Hx Heart Attack/AMI: Yes ("heart problems-takes ntg, unsure of dx") Hx Diabetes: Yes Hx Psychiatric Treatment: Yes (anxiety) Hx Asthma: Yes Additional medical history: family history of cardiac problems, endometriosis,chronic back pain - Surgical History Additional Surgical History: , laproscopy x2 (ovarian cysts), hysterectomy 03/24 with recurrent infections. - Social History Smoking Status: Never Smoker Substance Use Type: None - Medications Home Medications: Home Medications Medication Instructions Recorded Confirmed Last Taken Type Acetaminophen 500 mg PO Q8H PRN #30 tablet 12/18/17 Unknown Rx Cyclobenzaprine HCl [Flexeril 5 MG 5 mg PO QHS #10 tab 12/18/17 Unknown Rx TAB] predniSONE [Deltasone] 20 mg PO DAILY #5 tablet 05/11/18 Unknown Rx ED Physical Exam - General Limitations: No Limitations General appearance: alert, in no apparent distress - Head Head exam: Present: atraumatic, normocephalic, normal inspection - Eye Eye exam: Present: normal appearance, PERRL - ENT ENT exam: Present: normal exam, normal orophraynx, mucous membranes moist - Neck Neck exam: Present: normal inspection, full ROM. Absent: tenderness, meningismus - Respiratory Respiratory exam: Present: normal lung sounds bilaterally - Cardiovascular Cardiovascular Exam: Present: regular rate, normal rhythm, normal heart sounds - GI/Abdominal GI/Abdominal exam: Present: soft, normal bowel sounds. Absent: distended, tenderness, guarding, rebound, rigid, organomegaly, mass, bruit, pulsatile mass, hernia - Extremities Exam Extremities exam: Present: normal inspection, full ROM, normal capillary refill. Absent: tenderness - Back Exam Back exam: Present: normal inspection, full ROM. Absent: CVA tenderness (R), CVA tenderness (L) - Neurological Exam Neurological exam: Present: alert, oriented X3, CN II-XII intact, normal gait, reflexes normal. Absent: motor sensory deficit - Psychiatric Psychiatric exam: Present: normal mood - Skin Skin exam: Present: warm, intact, normal color ED Course Vital Signs 07/02/21 07/02/21 07/02/21 14:51 17:28 17:31 Temperature 98.8 F Pulse Rate 105 H 102 H Respiratory 16 20 Rate Blood Pressure 140/88 Blood Pressure 175/88 [Right] O2 Sat by Pulse 100 79 L 97 Oximetry 07/02/21 07/02/21 07/02/21 18:01 18:31 19:01 Temperature Pulse Rate 96 H 105 H 101 H Respiratory 16 20 17 Rate Blood Pressure 138/89 138/89 136/86 Blood Pressure [Right] O2 Sat by Pulse 96 96 97 Oximetry 07/02/21 20:15 Temperature 98.1 F Pulse Rate 94 H Respiratory 13 Rate Blood Pressure Blood Pressure 136/86 [Right] O2 Sat by Pulse 96 Oximetry ED Medical Decision Making - Lab Data Result diagrams: 07/02/21 16:18 07/02/21 16:18 - Radiology Data Radiology results: report reviewed - Medical Decision Making Patient is 50 years old female with history of cauda equina multiple back surgery secondary to degenerative disc disease. Patient presented to the ER complaining of lower back pain after she fell 3 days ago. Patient stated that she was walking when she tripped and fell. Patient denied any head injury, neck injury, chest injury or extremity injuries. Her main complaint is lower back pain. Patient denied any focal weakness, numbness or tingling sensation. She also denied any loss of bowel or bladder control. She denied any saddle anesthesia. Patient received morphine and Zofran. Patient stated that her pain is better now. CT of the lumbar sacral spine is reviewed and showed multiple abnormalities however patient clinical exam is not showing any evidence of cauda equina at this moment and patient strongly advised to follow-up with her neurologist in the next 2 to 3 days for outpatient MRI if needed. Patient advised to return to the ER if she develop any new symptoms. Critical care attestation.: If time is entered above; I have spent that time in minutes in the direct care of this critically ill patient, excluding procedure time. ED Disposition Clinical Impression: Acute back pain Disposition: 01 HOME / SELF CARE / HOMELESS Is pt being admited?: No Condition: Stable Instructions: Acute Back Pain, Adult Referrals: PRIMARY CARE, [Primary Care Provider] - 3-5 Days
[2021-07-02 16:43] LABS: Basophils % (Auto) 0.8 % (0.0-1.8); Eosinophils # (Auto) 0.1 K/mm3 (0.0-0.4); Eosinophils % (Auto) 1.6 % (0.0-4.3); Hemoglobin 12.8 gm/dl (10.1-14.3); Lymphocytes # (Auto) 1.4 K/mm3 (1.2-5.4); Lymphocytes % (Auto) 28.2 % (13.4-35.0); Mean Corpuscular HGB Conc 34 % (30-34); Mean Corpuscular Volume 88 fl (79-97); Monocytes # (Auto) 0.3 K/mm3 (0.0-0.8); Monocytes % (Auto) 6.6 % (0.0-7.3); Platelet Count 175 K/mm3 (140-440); Red Blood Count 4.33 M/mm3 (3.65-5.03); Red Cell Distribution Width 12.4 % (13.2-15.2)
--- NOTE | 2021-07-02 17:40 | Cat Scan Report ---
CT lumbar spine wo con INDICATION / CLINICAL INFORMATION: 50 years Female; fall, h/o back surgery. TECHNIQUE: Axial CT images of the lumbar spine were obtained. Sagittal and coronal reformatted images were prod uced. All CT scans at this location are performed using CT dose reduction for ALARA by means of autom ated exposure control. COMPARISON: 05/11/2018 FINDINGS: POST-SURGICAL CHANGES: Partial, bilateral hemilaminectomies seen at L4 and L5. These findings are new from prior. ALIGNMENT: Dextroscoliosis seen with apex at L2-3. VERTEBRAE: T1-weighted are grossly normal in height. Modic type III endplate changes and disc space narrowing seen at L2-3 - findings have progressed from prior. Bilateral pars defects suggested at L4 - ununited fractures seen. This finding is not definitively se en on prior study. Area of sclerosis is seen in the right sacroiliac joint. This finding is unchanged from CT of the pel vis performed on 05/15/2017. [id number] ANALYSIS: L1-2: Minimal facet hypertrophy. L2-3: Mild to moderate disc bulge and mild, bilateral facet hypertrophy. Mild to moderate thecal sac narrowing seen, a component of which is related epidural fat. Subarticular zone narrowing suggested bilaterally, which may encroach upon L3 nerves. Findings have progressed from prior. L3-4: Moderate disc bulge and xrck-hd-bwzfyril facet hypertrophy. Moderate canal narrowing and subar ticular zone narrowing seen. Findings may affect the L4 nerves. Findings have progressed from prior. Mild foraminal narrowing bilaterally, slightly greater on the left. No impingement of exiting L3 nerv es appreciated. L4-5: Postoperative changes noted. Mild canal narrowing. Subarticular zone narrowing suggested, whic h may affect L5 nerves. Moderate disc bulges seen. There is moderate foraminal narrowing bilaterally because of disc disease-right slightly greater than left. Findings encroach upon the L4 nerves with b orderline flattening suggested on the right. The foraminal narrowing has progressed from prior. L5-S1: Postsurgical changes. Mild to moderate disc bulge. Moderate foraminal narrowing bilaterally f rom disc disease, with encroachment upon the L5 nerves. Findings have progressed from prior. PARASPINAL SOFT TISSUES: Paraspinous muscular atrophy noted. ADDITIONAL FINDINGS: None. IMPRESSION: 1. Degenerative and postoperative changes of the lumbar spine as described above. Most marked finding s may be in the foraminal regions at L4-5, followed by L5-S1. Most marked canal narrowing appears to be at L3-4, followed by L2-3. 2. 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 Signer Name: Vasyl Dennis MD, III Signed: 07/02/2021 5:36 PM Workstation Name: [id number]
[2021-07-02 18:23] LABS: Blood Urea Nitrogen 14 mg/dL (7-17); Calcium 8.8 mg/dL (8.4-10.2); Hemolysis Index 24
[2021-07-02 18:32] LABS: BUN/Creatinine Ratio 35
[2021-07-02 19:04] VITALS: BP 136/86
[2021-07-02] MEDS ORDERED: ONDANSETRON 4 MG/2 ML INJ IV ONE (20:38)
[2021-07-02] MEDS ORDERED: MORPHINE 4 MG/1 ML INJ IV ONE (20:38)
== END 2021-07-04 19:49 | disposition home or self-care (01) ==
LOC: ED 14:39
DX: M54.9 Dorsalgia, unspecified (principal); Z88.6 Allergy status to analgesic agent; Z88.1 Allergy status to other antibiotic agents; J45.909 Unspecified asthma, uncomplicated; E11.8 Type 2 diabetes mellitus with unspecified complications
CPT/HCPCS: 36415; 72131; 80048; 85025; 96372; 96374; 96375; 99284; J2270; J2405

== ENCOUNTER 2022-01-29 14:55 | Observation (INO) | payer SELFPAY ==
[2022-01-29] MEDS ORDERED: SODIUM CHLORIDE 0.9% 1000 ML 1,000 ML IV ONE (16:03)
[2022-01-29] MEDS ORDERED: PANTOPRAZOLE 40 MG INJ IV ONE (16:04)
[2022-01-29] MEDS ORDERED: METOCLOPRAMIDE 10 MG/2 ML INJ IV ONE (16:04)
[2022-01-29] MEDS ORDERED: MORPHINE 4 MG/1 ML INJ IV ONE (16:26)
[2022-01-29] MEDS ORDERED: NITROGLYCERIN 0.4 MG TAB SUBL SL PRN (16:26)
--- NOTE | 2022-01-29 16:30 | Emergency Department Report ---
ED General Adult HPI - General Chief complaint: Hyperglycemia Stated complaint: CHEST PAIN/HYPERGLYCEMIA Time Seen by Provider: 01/29/22 16:03 Source: patient, EMS ( EMS documentation not available at time of chart dictation ), RN notes reviewed, old records reviewed Mode of arrival: Stretcher Limitations: No Limitations - History of Present Illness Initial comments: The patient was evaluated in the emergency department for symptoms described in the history of present illness. He/she was evaluated in the context of the global COVID-19 pandemic, which necessitated consideration that the patient might be at risk for infection with the virus that causes COVID-19. Institutional protocols and algorithms that pertain to the evaluation of patients at risk for COVID-19 are in a state of rapid change based on information released by regulatory bodies including the CDC and federal and state organizations. These policies and algorithms were followed during the patient's care in the emergency department. Please note that these policies, procedures and recommendations changed on a rapid basis. This patient is a 51-year-old female. She has a history of diabetes and CAD/stent. Patient reports being admitted to [facility] l ast month, for acute STEMI. She reports that she has had a resolute Delon 3.0 x 18 mm Rx drug-eluting stent deployed. She knows this because of her device card that she has on her self at this time. 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 She is compliant with aspirin. She states that she does not take Plavix. She presents today with a complaint of chest pain, nausea, and feels like her prior DE. She also reports that she fell a few days ago, and bruised her anterior right arm. She reports that she is very anxious, and reports that she threw up some gritty fluid. At the moment, denies headache, midline neck pain, abdominal pain, hematemesis, bright red blood per rectum, but she does report that she feels very anxious. Her symptoms are improved with nitroglycerin. -: Sudden, hour(s) Location: chest Severity scale (0 -10): 0 Consistency: intermittent Improves with: medication, rest - Related Data Previous Rx's Medication Instructions Recorded Last Taken Type Acetaminophen 500 mg PO Q8H PRN #30 tablet 12/18/17 Unknown Rx Cyclobenzaprine HCl [Flexeril 5 MG 5 mg PO QHS #10 tab 12/18/17 Unknown Rx TAB] predniSONE [Deltasone] 20 mg PO DAILY #5 tablet 05/11/18 Unknown Rx Ondansetron [Zofran Odt] 4 mg PO Q8HR PRN #14 tab.rapdis 07/02/21 Unknown Rx oxyCODONE /ACETAMINOPHEN [Percocet 1 tab PO Q6HR PRN #14 tablet 07/02/21 Unknown Rx 5/325] Allergies Allergy/AdvReac Type Severity Reaction Status Date / Time aspirin Allergy Anaphylaxis Verified 01/29/22 15:14 ciprofloxacin [From Cipro] Allergy Hives Verified 01/29/22 15:14 ciprofloxacin HCl Allergy Hives Verified 01/29/22 15:14 [From Cipro] ED Review of Systems ROS: Stated complaint: CHEST PAIN/HYPERGLYCEMIA Other details as noted in HPI Constitutional: weakness. denies: fever Eyes: denies: eye discharge Respiratory: denies: cough Cardiovascular: chest pain Gastrointestinal: nausea, vomiting. denies: abdominal pain, melena, hematochezia Neurological: weakness Psychiatric: anxiety ED Past Medical Hx - Past Medical History Hx Heart Attack/AMI: Yes ("heart problems-takes ntg, unsure of dx") Hx Diabetes: Yes Hx Psychiatric Treatment: Yes (anxiety) Hx Asthma: Yes Additional medical history: family history of cardiac problems, endometriosis,chronic back pain - Surgical History Additional Surgical History: , laproscopy x2 (ovarian cysts), hysterectomy 03/24 with recurrent infections. - Social History Smoking Status: Never Smoker Substance Use Type: None - Medications Home Medications: Home Medications Medication Instructions Recorded Confirmed Last Taken Type Acetaminophen 500 mg PO Q8H PRN #30 tablet 12/18/17 Unknown Rx Cyclobenzaprine HCl [Flexeril 5 MG 5 mg PO QHS #10 tab 12/18/17 Unknown Rx TAB] predniSONE [Deltasone] 20 mg PO DAILY #5 tablet 05/11/18 Unknown Rx Ondansetron [Zofran Odt] 4 mg PO Q8HR PRN #14 tab.rapdis 07/02/21 Unknown Rx oxyCODONE /ACETAMINOPHEN [Percocet 1 tab PO Q6HR PRN #14 tablet 07/02/21 Unknown Rx 5/325] ED Physical Exam - General Limitations: No Limitations General appearance: alert, anxious - Head Head exam: Present: atraumatic, normocephalic - Eye Eye exam: Present: normal appearance, EOMI. Absent: nystagmus - ENT ENT exam: Present: normal exam, normal orophraynx, mucous membranes moist, normal external ear exam - Neck Neck exam: Present: normal inspection, full ROM. Absent: tenderness, meningis mus - Respiratory Respiratory exam: Present: normal lung sounds bilaterally. Absent: respiratory distress, wheezes, rales, rhonchi, stridor, decreased breath sounds - Cardiovascular Cardiovascular Exam: Present: regular rate, normal rhythm, normal heart sounds. Absent: bradycardia, tachycardia, irregular rhythm, systolic murmur, diastolic murmur, rubs, gallop - GI/Abdominal GI/Abdominal exam: Present: soft. Absent: distended, tenderness, guarding, rebound, rigid, pulsatile mass - Extremities Exam Extremities exam: Present: full ROM, other (2+ pulses noted in the bilateral upper and lower extremities. There is no palpable cord. negative Homans sign. Muscular compartments are soft. The pelvis is stable.). Absent: normal inspection (There is a right anterior forearm ecchymosis), pedal edema, calf tenderness - Back Exam Back exam: Present: normal inspection. Absent: tenderness, CVA tenderness (R), CVA tenderness (L), paraspinal tenderness, vertebral tenderness - Neurological Exam Neurological exam: Present: alert, oriented X3, other (No facial droop. Tongue midline. Extraocular movements intact bilaterally. Facial sensation intact to light touch in V1, V2, V3 distribution bilaterally. 5 and a 5 strength in 4 extremities. Sensation intact to light touch in 4 extremities.). Absent: motor sensory deficit, reflexes normal - Psychiatric Psychiatric exam: Present: anxious - Skin Skin exam: Present: warm, dry, intact, normal color, ecchymosis. Absent: rash ED Course Vital Signs 01/29/22 01/29/22 15:11 15:47 Temperature 97.8 F Pulse Rate 74 87 Respiratory 18 Rate Blood Pressure 120/72 [Left] O2 Sat by Pulse 98 Oximetry - Reevaluation(s) Reevaluation #1: 01/29/22 18:32 Differential diagnosis, including but not limited to: GERD, gastritis, hiatal hernia, pneumonia, costochondritis, acute coronary syndrome, gastroparesis, forearm ecchymosis, hyperglycemia Assessment and plan: 51-year-old female status post STEMI last month presenting with acute chest pain. EKG nonspecific but not consistent with chest pain. She is also found to be hyperglycemic without anion gap acidosis. Patient reports compliant with aspirin therapy. Patient to be medicated with aspirin, nitroglycerin, morphine, insulin, and antiemetic medication. We will attempt to obtain old medical records from [facility]. Patient not currently tachycardic, tachypneic or hypoxic, chest pain not described as pleuritic, and she has no lower extremity swelling or asymmetry. I find the patient to be low risk by Wells criteria for pulmonary embolism. Admission recommended for hyperglycemia and acute high risk chest pain. Patient agreeable to this plan of care. Hospital physician, Dr. Salazar Miles to admit to [facility] ED Medical Decision Making - Lab Data Result diagrams: 01/29/22 16:42 01/29/22 16:42 Vital Signs 01/29/22 01/29/22 15:11 15:47 Temperature 97.8 F Pulse Rate 74 87 Respiratory 18 Rate Blood Pressure 120/72 [Left] O2 Sat by Pulse 98 Oximetry Lab Results 01/29/22 01/29/22 01/29/22 Range/Units 16:28 16:42 16:42 WBC 4.9 (4.5-11.0) K/mm3 RBC 4.19 (3.65-5.03) M/mm3 Hgb 12.2 (10.1-14.3) gm/dl Hct 36.8 (30.3-42.9) % MCV 88 (79-97) fl MCH 29 (28-32) pg MCHC 33 (30-34) % RDW 13.4 (13.2-15.2) % Plt Count 181 (140-440) K/mm3 Lymph % (Auto) 27.7 (13.4-35.0) % Sebastian % (Auto) 5.9 (0.0-7.3) % Eos % (Auto) 1.7 (0.0-4.3) % Baso % (Auto) 0.5 (0.0-1.8) % Lymph # (Auto) 1.4 (1.2-5.4) K/mm3 Sebastian # (Auto) 0.3 (0.0-0.8) K/mm3 Eos # (Auto) 0.1 (0.0-0.4) K/mm3 Baso # (Auto) 0.0 (0.0-0.1) K/mm3 Seg Neutrophils % 64.2 (40.0-70.0) % Seg Neutrophils # 3.1 (1.8-7.7) K/mm3 PT 12.7 (12.2-14.9) Sec. INR 0.87 (0.87-1.13) VBG pH (7.320-7.420) Sodium (137-145) mmol/L Potassium (3.6-5.0) mmol/L Chloride (98-107) mmol/L Carbon Dioxide (22-30) mmol/L Anion Gap mmol/L BUN (7-17) mg/dL Creatinine (0.6-1.2) mg/dL Estimated GFR ml/min BUN/Creatinine Ratio % Glucose (65-100) mg/dL POC Glucose (70-105) mg/dL Hemoglobin A1c (4-6) % Calcium (8.4-10.2) mg/dL Magnesium 1.50 L (1.7-2.3) mg/dL Total Bilirubin (0.1-1.2) mg/dL AST (5-40) units/L ALT (7-56) units/L Alkaline Phosphatase (35-129) units/L Total Creatine Kinase 83 (30-135) units/L Troponin T (0.00-0.029) ng/mL Total Protein (6.3-8.2) g/dL Albumin (3.9-5) g/dL Albumin/Globulin Ratio % TSH (0.270-4.200) mlU/mL Plasma/Serum Alcohol (0-0.07) % 01/29/22 01/29/22 01/29/22 Range/Units 16:42 16:42 16:42 WBC (4.5-11.0) K/mm3 RBC (3.65-5.03) M/mm3 Hgb (10.1-14.3) gm/dl Hct (30.3-42.9) % MCV (79-97) fl MCH (28-32) pg MCHC (30-34) % RDW (13.2-15.2) % Plt Count (140-440) K/mm3 Lymph % (Auto) (13.4-35.0) % Sebastian % (Auto) (0.0-7.3) % Eos % (Auto) (0.0-4.3) % Baso % (Auto) (0.0-1.8) % Lymph # (Auto) (1.2-5.4) K/mm3 Sebastian # (Auto) (0.0-0.8) K/mm3 Eos # (Auto) (0.0-0.4) K/mm3 Baso # (Auto) (0.0-0.1) K/mm3 Seg Neutrophils % (40.0-70.0) % Seg Neutrophils # (1.8-7.7) K/mm3 PT (12.2-14.9) Sec. INR (0.87-1.13) VBG pH 7.373 (7.320-7.420) Sodium 138 (137-145) mmol/L Potassium 4.2 (3.6-5.0) mmol/L Chloride 99.9 (98-107) mmol/L Carbon Dioxide 26 (22-30) mmol/L Anion Gap 16 mmol/L BUN 14 (7-17) mg/dL Creatinine 0.6 (0.6-1.2) mg/dL Estimated GFR > 60 ml/min BUN/Creatinine Ratio 23 % Glucose 452 H (65-100) mg/dL POC Glucose (70-105) mg/dL Hemoglobin A1c (4-6) % Calcium 8.9 (8.4-10.2) mg/dL Magnesium (1.7-2.3) mg/dL Total Bilirubin 0.40 (0.1-1.2) mg/dL AST 12 (5-40) units/L ALT 17 (7-56) units/L Alkaline Phosphatase 126 (35-129) units/L Total Creatine Kinase (30-135) units/L Troponin T < 0.010 (0.00-0.029) ng/mL Total Protein 6.2 L (6.3-8.2) g/dL Albumin 4.1 (3.9-5) g/dL Albumin/Globulin Ratio 2.0 % TSH (0.270-4.200) mlU/mL Plasma/Serum Alcohol < 0.01 (0-0.07) % 01/29/22 01/29/22 01/29/22 Range/Units 16:42 16:42 18:04 WBC (4.5-11.0) K/mm3 RBC (3.65-5.03) M/mm3 Hgb (10.1-14.3) gm/dl Hct (30.3-42.9) % MCV (79-97) fl MCH (28-32) pg MCHC (30-34) % RDW (13.2-15.2) % Plt Count (140-440) K/mm3 Lymph % (Auto) (13.4-35.0) % Sebastian % (Auto) (0.0-7.3) % Eos % (Auto) (0.0-4.3) % Baso % (Auto) (0.0-1.8) % Lymph # (Auto) (1.2-5.4) K/mm3 Sebastian # (Auto) (0.0-0.8) K/mm3 Eos # (Auto) (0.0-0.4) K/mm3 Baso # (Auto) (0.0-0.1) K/mm3 Seg Neutrophils % (40.0-70.0) % Seg Neutrophils # (1.8-7.7) K/mm3 PT (12.2-14.9) Sec. INR (0.87-1.13) VBG pH (7.320-7.420) Sodium (137-145) mmol/L Potassium (3.6-5.0) mmol/L Chloride (98-107) mmol/L Carbon Dioxide (22-30) mmol/L Anion Gap mmol/L BUN (7-17) mg/dL Creatinine (0.6-1.2) mg/dL Estimated GFR ml/min BUN/Creatinine Ratio % Glucose (65-100) mg/dL POC Glucose 356 H (70-105) mg/dL Hemoglobin A1c 11.8 H (4-6) % Calcium (8.4-10.2) mg/dL Magnesium (1.7-2.3) mg/dL Total Bilirubin (0.1-1.2) mg/dL AST (5-40) units/L ALT (7-56) units/L Alkaline Phosphatase (35-129) units/L Total Creatine Kinase (30-135) units/L Troponin T (0.00-0.029) ng/mL Total Protein (6.3-8.2) g/dL Albumin (3.9-5) g/dL Albumin/Globulin Ratio % TSH 5.770 H (0.270-4.200) mlU/mL Plasma/Serum Alcohol (0-0.07) % - EKG Data -: EKG Interpreted by Me EKG shows normal: sinus rhythm Rate: normal - EKG Data 01/29/22 18:28 The EKG is interpreted at 15: 46 Sinus rhythm, with a rate of 87 bpm. There is a leftward axis deviation, with Q waves noted in the inferior leads, and Q waves noted in the lateral leads. There is a QTC of 42 ms. This is an abnormal EKG. This is not a STEMI. When compared to prior EKG from 2018, left axis deviation is chronic. Q waves in the inferior leads appear to be more pronounced. Q waves in the lateral leads appear to be more pronounced. - Radiology Data Radiology results: pending, report reviewed, image reviewed CHEST 1 VIEW 01/29/2022 3:29 PM INDICATION / CLINICAL INFORMATION: Lightheadedness/Dizziness. COMPARISON: 01/13/2018 FINDINGS: SUPPORT DEVICES: None. HEART / MEDIASTINUM: No significant abnormality. LUNGS / PLEURA: No significant pulmonary or pleural abnormality. No pneumothorax. ADDITIONAL FINDINGS: No significant additional findings. IMPRESSION: 1. No acute findings. Signer Name: Eliud Roman MD Signed: 01/29/2022 3:31 PM Workstation Name: [id number] RIGHT FOREARM 2 VIEWS INDICATION / CLINICAL INFORMATION: Right forearm pain and ecchymosis COMPARISON: None available. FINDINGS: BONES and JOINT(S): No acute fracture or subluxation. No significant arthritis. SOFT TISSUES: No significant abnormality. ADDITIONAL FINDINGS: None. IMPRESSION: 1. No acute findings. Signer Name: Dm Hi MD Signed: 01/29/2022 4:06 PM Workstation Name: [id number] Critical care attestation.: If time is entered above; I have spent that time in minutes in the direct care of this critically ill patient, excluding procedure time. ED Disposition Clinical Impression: Acute chest pain, Hypomagnesemia, Hyperglycemia, Traumatic ecchymosis of right forearm Disposition: ADMITTED INPATIENT Is pt being admited?: Yes Does the pt Need Aspirin: No (given aspiring by EMS) Condition: Good Instructions: Chest Pain (ED) Heart Score - HEART Score History: Moderately suspicious EKG: Non-specific Age: 45-65 Risk factors: 1-2 risk factors Troponin: < normal limit HEART Score: 4 - EKG Read Time Time EKG Completed: 15:46 EKG Read Time: 15:46 - Critical Actions Critical Actions: 4-6 pts:12-16.6% risk of adverse cardiac event. Should be admitted
--- NOTE | 2022-01-29 16:35 | XRay Report ---
CHEST 1 VIEW 01/29/2022 3:29 PM INDICATION / CLINICAL INFORMATION: Lightheadedness/Dizziness. COMPARISON: 01/13/2018 FINDINGS: SUPPORT DEVICES: None. HEART / MEDIASTINUM: No significant abnormality. LUNGS / PLEURA: No significant pulmonary or pleural abnormality. No pneumothorax. ADDITIONAL FINDINGS: No significant additional findings. IMPRESSION: 1. No acute findings. Signer Name: Eliud Roman MD Signed: 01/29/2022 4:31 PM Workstation Name: [email or web address]
--- NOTE | 2022-01-29 17:10 | XRay Report ---
RIGHT FOREARM 2 VIEWS INDICATION / CLINICAL INFORMATION: Right forearm pain and ecchymosis COMPARISON: None available. FINDINGS: BONES and JOINT(S): No acute fracture or subluxation. No significant arthritis. SOFT TISSUES: No significant abnormality. ADDITIONAL FINDINGS: None. IMPRESSION: 1. No acute findings. Signer Name: Dm Hi MD Signed: 01/29/2022 5:06 PM Workstation Name: [id number]
[2022-01-29 17:22] LABS: Basophils % (Auto) 0.5 % (0.0-1.8); Eosinophils # (Auto) 0.1 K/mm3 (0.0-0.4); Eosinophils % (Auto) 1.7 % (0.0-4.3); Hematocrit 36.8 % (30.3-42.9); Hemoglobin 12.2 gm/dl (10.1-14.3); Lymphocytes # (Auto) 1.4 K/mm3 (1.2-5.4); Lymphocytes % (Auto) 27.7 % (13.4-35.0); Mean Corpuscular HGB Conc 33 % (30-34); Mean Corpuscular Volume 88 fl (79-97); Monocytes # (Auto) 0.3 K/mm3 (0.0-0.8); Monocytes % (Auto) 5.9 % (0.0-7.3); Platelet Count 181 K/mm3 (140-440); Red Blood Count 4.19 M/mm3 (3.65-5.03); Red Cell Distribution Width 13.4 % (13.2-15.2)
[2022-01-29 17:28] LABS: INR 0.87 (0.87-1.13)
[2022-01-29 17:48] LABS: Alanine Aminotransferase 17 units/L (7-56); Albumin 4.1 g/dL (3.9-5); Blood Urea Nitrogen 14 mg/dL (7-17); Calcium 8.9 mg/dL (8.4-10.2); Hemolysis Index 7
[2022-01-29 17:50] LABS: BUN/Creatinine Ratio 23
[2022-01-29] MEDS ORDERED: INSULIN REGULAR, HUMAN 100 UNITS/1 ML IV ONE (17:57)
[2022-01-29] MEDS ORDERED: SODIUM CHLORIDE 0.9% 500 ML 500 ML IV SCH (18:00)
[2022-01-29] MEDS: MAGNESIUM OXIDE 400 MG TAB PO SCH (18:47)
[2022-01-29] MEDS ORDERED: METOCLOPRAMIDE 10 MG/2 ML INJ IV PRN (20:08)
[2022-01-29] MEDS ORDERED: ACETAMINOPHEN 325 MG TAB PO PRN (20:08)
[2022-01-29] MEDS ORDERED: MORPHINE 2 MG/1 ML INJ IV PRN (20:08)
[2022-01-30] MEDS ORDERED: ACETAMINOPHEN 500 MG TAB PO PRN (01:24)
--- NOTE | 2022-01-30 01:24 | History and Physical Report ---
History of Present Illness Date of examination: 01/29/22 Date of admission: 01/29/22 20:08 Chief complaint: Chest pain since a.m. History of present illness: 51-year-old female with history of hypertension, coronary artery disease, type 2 diabetes generalized anxiety disorder comes in for chest pain and nausea since a.m. Chest pain is retrosternal and radiating to the left arm. No diaphoresis. Associated with nausea. No shortness of breath. Patient had a recent stent 1 month ago. [place]. Patient had acute STEMI. Patient reports that she had a [place] 3.0X 18 mm drug-eluting stent deployed. She is compliant with aspirin. Chest pain is about 8 on a scale of 1-10 and intermittent in nature. Sharp in nature. No exacerbating or relieving factors. - Past Medical History --Heart Attack/AMI: Yes ("heart problems-takes ntg, unsure of dx") --Diabetes: Yes --Psychiatric Treatment: Yes (anxiety) --Asthma: Yes --Additional medical history: family history of cardiac problems, endometriosis,chronic back pain - Surgical History --Additional Surgical History: , laproscopy x2 (ovarian cysts), hysterectomy 03/24 with recurrent infections. - Social History --Smoking Status: Never Smoker --Substance Use Type: None - Medications --Home Medications: Home Medications Medication Instructions Recorded Confirmed Last Taken Type Acetaminophen 500 mg PO Q8H PRN #30 tablet 12/18/17 Unknown Rx Cyclobenzaprine HCl [Flexeril 5 MG 5 mg PO QHS #10 tab 12/18/17 Unknown Rx TAB] predniSONE [Deltasone] 20 mg PO DAILY #5 tablet 05/11/18 Unknown Rx Ondansetron [Zofran Odt] 4 mg PO Q8HR PRN #14 tab.rapdis 07/02/21 Unknown Rx oxyCODONE /ACETAMINOPHEN [Percocet 1 tab PO Q6HR PRN #14 tablet 07/02/21 Unknown Rx 5/325] Review of Systems ROS: Constitutional no weight loss or weight gain no fever or chills HEENT no sore throat no post nasal drip no diplopia Neck no neck stiffness no lymph gland enlargement Chest and lungs no shortness of breath cough or wheezing CVS substernal chest pain with radiation to the left arm GI no nausea no vomiting no diarrhea Genitourinary system no dysuria no flank pain Musculoskeletal system no muscle pains no joint pains [employer] no syncope no seizures Skin no rash no itching Psychiatric no depression no homicidal or suicidal tendencies Hematologic no lymphedema or bruising Endocrine no polydipsia no polyuria no cold intolerance no heat intolerance Medications and Allergies Allergies Allergy/AdvReac Type Severity Reaction Status Date / Time aspirin Allergy Anaphylaxis Verified 01/29/22 15:14 ciprofloxacin [From Cipro] Allergy Hives Verified 01/29/22 15:14 ciprofloxacin HCl Allergy Hives Verified 01/29/22 15:14 [From Cipro] Home Medications Medication Instructions Recorded Confirmed Last Taken Type Acetaminophen 500 mg PO Q8H PRN #30 tablet 12/18/17 01/30/22 Unknown Rx Cyclobenzaprine HCl [Flexeril 5 MG 5 mg PO QHS #10 tab 12/18/17 01/30/22 Unknown Rx TAB] predniSONE [Deltasone] 20 mg PO DAILY #5 tablet 05/11/18 01/30/22 Unknown Rx Ondansetron [Zofran Odt] 4 mg PO Q8HR PRN #14 tab.rapdis 07/02/21 01/30/22 Unk nown Rx oxyCODONE /ACETAMINOPHEN [Percocet 1 tab PO Q6HR PRN #14 tablet 07/02/21 01/30/22 Unknown Rx 5/325] metFORMIN 500 mg PO BID 01/30/22 01/30/22 Unknown History Active Meds: Active Medications Acetaminophen (Acetaminophen 325 Mg Tab) 650 mg PO Q4H PRN PRN Reason: Pain MILD(1-3)/Fever >100.5/[place] Sodium Chloride (Nacl 0.9% 500 Ml) 500 mls @ 0 mls/hr IV DIRECT RAÚL Magnesium Oxide (Magnesium Oxide 400 Mg Tab) 400 mg PO QDAY RAÚL Last Admin: 01/29/22 18:47 Dose: 400 mg Metoclopramide HCl (Metoclopramide 10 Mg/2 Ml Inj) 10 mg IV Q6H PRN PRN Reason: Nausea And Vomiting Morphine Sulfate (Morphine 2 Mg/1 Ml Inj) 2 mg IV Q4H PRN PRN Reason: Pain, Moderate (4-6) Nitroglycerin (Nitroglycerin 0.4 Mg Tab Subl) 0.4 mg SL .Q5MIN PRN PRN Reason: Chest Pain Sodium Chloride (Sodium Chloride 0.9% 10 Ml Flush Syringe) 10 ml IV BID RAÚL Last Admin: 01/30/22 00:49 Dose: Not Given Sodium Chloride (Sodium Chloride 0.9% 10 Ml Flush Syringe) 10 ml IV PRN PRN PRN Reason: LINE FLUSH Exam - Constitutional Vitals: Temp Pulse Resp BP Pulse Ox 97.8 F 80 16 128/82 96 01/29/22 15:11 01/29/22 23:43 01/29/22 23:43 01/29/22 23:43 01/29/22 23:43 General appearance: Present: mild distress, well-nourished - EENT Eyes: Present: PERRL ENT: hearing intact, clear oral mucosa - Neck Neck: Present: supple, normal ROM - Respiratory Respiratory effort: normal Respiratory: bilateral: CTA - Cardiovascular Heart rate: 78 Rhythm: regular Heart Sounds: Present: S1 & S2. Absent: rub, click - Extremities Extremities: pulses symmetrical, No edema Peripheral Pulses: within normal limits - Abdominal General gastrointestinal: Present: soft, non-tender, non-distended, normal bowel sounds Female genitourinary: Present: normal - Integumentary Integumentary: Present: clear, warm, dry - Musculoskeletal Musculoskeletal: gait normal, strength equal bilaterally - Psychiatric Psychiatric: appropriate mood/affect, intact judgment & insight - Neurologic Neurologic: CNII-XII intact, moves all extremities HEART Score - HEART Score EKG: Non-specific Age: 45-65 Risk factors: 1-2 risk factors Troponin: Troponin T < 0.010 ng/mL (0.00-0.029) 01/29/22 16:42 Troponin: < normal limit - Critical Actions Critical Actions: 4-6 pts:12-16.6% risk of adverse cardiac event. Should be admitted Results - Labs CBC & Chem 7: 01/29/22 16:42 01/29/22 16:42 Labs: Laboratory Last Values WBC 4.9 K/mm3 (4.5-11.0) 01/29/22 16:42 RBC 4.19 M/mm3 (3.65-5.03) 01/29/22 16:42 Hgb 12.2 gm/dl (10.1-14.3) 01/29/22 16:42 Hct 36.8 % (30.3-42.9) 01/29/22 16:42 MCV 88 fl (79-97) 01/29/22 16:42 MCH 29 pg (28-32) 01/29/22 16:42 MCHC 33 % (30-34) 01/29/22 16:42 RDW 13.4 % (13.2-15.2) 01/29/22 16:42 Plt Count 181 K/mm3 (140-440) 01/29/22 16:42 Lymph % (Auto) 27.7 % (13.4-35.0) 01/29/22 16:42 [place] % (Auto) 5.9 % (0.0-7.3) 01/29/22 16:42 Eos % (Auto) 1.7 % (0.0-4.3) 01/29/22 16:42 Baso % (Auto) 0.5 % (0.0-1.8) 01/29/22 16:42 Lymph # (Auto) 1.4 K/mm3 (1.2-5.4) 01/29/22 16:42 [place] # (Auto) 0.3 K/mm3 (0.0-0.8) 01/29/22 16:42 Eos # (Auto) 0.1 K/mm3 (0.0-0.4) 01/29/22 16:42 Baso # (Auto) 0.0 K/mm3 (0.0-0.1) 01/29/22 16:42 Seg Neutrophils % 64.2 % (40.0-70.0) 01/29/22 16:42 Seg Neutrophils # 3.1 K/mm3 (1.8-7.7) 01/29/22 16:42 PT 12.7 Sec. (12.2-14.9) 01/29/22 16:42 INR 0.87 (0.87-1.13) 01/29/22 16:42 VBG pH 7.373 (7.320-7.420) 01/29/22 16:42 Sodium 138 mmol/L (137-145) 01/29/22 16:42 Potassium 4.2 mmol/L (3.6-5.0) 01/29/22 16:42 Chloride 99.9 mmol/L (98-107) 01/29/22 16:42 Carbon Dioxide 26 mmol/L (22-30) 01/29/22 16:42 Anion Gap 16 mmol/L 01/29/22 16:42 BUN 14 mg/dL (7-17) 01/29/22 16:42 Creatinine 0.6 mg/dL (0.6-1.2) 01/29/22 16:42 Estimated GFR > 60 ml/min 01/29/22 16:42 BUN/Creatinine Ratio 23 % 01/29/22 16:42 Glucose 452 mg/dL (65-100) H 01/29/22 16:42 POC Glucose 356 mg/dL (70-105) H 01/29/22 18:04 Hemoglobin A1c 11.8 % (4-6) H 01/29/22 16:42 Calcium 8.9 mg/dL (8.4-10.2) 01/29/22 16:42 Magnesium 1.50 mg/dL (1.7-2.3) L 01/29/22 16:28 Total Bilirubin 0.40 mg/dL (0.1-1.2) 01/29/22 16:42 AST 12 units/L (5-40) 01/29/22 16:42 ALT 17 units/L (7-56) 01/29/22 16:42 Alkaline Phosphatase 126 units/L (35-129) 01/29/22 16:42 Total Creatine Kinase 83 units/L (30-135) 01/29/22 16:28 Troponin T < 0.010 ng/mL (0.00-0.029) 01/29/22 16:42 Total Protein 6.2 g/dL (6.3-8.2) L 01/29/22 16:42 Albumin 4.1 g/dL (3.9-5) 01/29/22 16:42 Albumin/Globulin Ratio 2.0 % 01/29/22 16:42 TSH 5.770 mlU/mL (0.270-4.200) H 01/29/22 16:42 HCG, Quant 0.786 mIU/mL (0-4) 01/29/22 16:42 Plasma/Serum Alcohol < 0.01 % (0-0.07) 01/29/22 16:42 Short CBC 01/29/22 Range/Units 16:42 WBC 4.9 (4.5-11.0) K/mm3 Hgb 12.2 (10.1-14.3) gm/dl Hct 36.8 (30.3-42.9) % Plt Count 181 (140-440) K/mm3 BMP 01/29/22 16:42 Sodium 138 Potassium 4.2 Chloride 99.9 Carbon Dioxide 26 BUN 14 Creatinine 0.6 Glucose 452 H Calcium 8.9 Cardiac Enzymes 01/29/22 01/29/22 Range/Units 16:28 16:42 Total Creatine Kinase 83 (30-135) units/L Troponin T < 0.010 (0.00-0.029) ng/mL Liver Function 01/29/22 Range/Units 16:42 Total Bilirubin 0.40 (0.1-1.2) mg/dL AST 12 (5-40) units/L ALT 17 (7-56) units/L Alkaline Phosphatase 126 (35-129) units/L Albumin 4.1 (3.9-5) g/dL - Imaging and Cardiology EKG: report reviewed (Sinus rhythm no acute ST-T wave changes) Imaging and Cardiology: Chest x-ray No acute findings Right forearm x-ray No acute findings Assessment and Plan Advance Directives: Yes (Full code) VTE prophylaxis?: Chemical Plan of care discussed with patient/family: Yes - Patient Problems (1) Acute coronary syndrome Current Visit: Yes Status: Acute Plan to address problem: Serial troponins Lexiscan in a.m. Cardiology consult if necessary (2) T2DM (type 2 diabetes mellitus) Current Visit: Yes Status: Chronic Qualifiers: Diabetes mellitus chcf insulin use: unspecified chcf insulin use status Plan to address problem: Poorly controlled A1c Lantus added for basal insulin Bolus insulin also at the time of discharge Diabetes education (3) Coronary artery disease Current Visit: Yes Status: Acute Qualifiers: Coronary Disease-Associated Artery/Lesion type: [place] artery [place] vs. transplanted heart: [place] heart Associated angina: with stable angina Qualified Code(s): I25.118 - Atherosclerotic heart disease of [place] coronary artery with other forms of angina pectoris Plan to address problem: Patient had a stent placed recently On aspirin (4) Generalized anxiety disorder Current Visit: Yes Status: Chronic Plan to address problem: Anxiolytics as necessary (5) Asthma Current Visit: Yes Status: Chronic Qualifiers: Asthma severity: unspecified severity Asthma complication type: unspecified Plan to address problem: Albuterol MDI as needed basis (6) Hypomagnesemia Current Visit: Yes Status: Acute Plan to address problem: Supplemented (7) DVT prophylaxis Current Visit: Yes Status: Acute Plan to address problem: On heparin and GI prophylaxis (8) Advance care planning Current Visit: Yes Status: Acute Plan to address problem: Disease education conducted, care plan discussed, diagnosis discussed and prognosis discussed. Patient is full code. Patient acknowledges understanding with care plan +30 minutes.
[2022-01-30] MEDS ORDERED: ACETAMINOPHEN 325 MG TAB PO PRN ×2 (01:26→07:27)
[2022-01-30] MEDS ORDERED: oxyCODONE /ACETAMINOPHEN 5-325MG TAB PO PRN (01:26)
[2022-01-30] MEDS: MORPHINE 2 MG/1 ML INJ IV PRN ×3 (07:57→19:06)
[2022-01-30] MEDS: INSULIN REGULAR, HUMAN 100 UNITS/1 ML SUB-Q SCH ×3 (08:00→16:30)
[2022-01-30 08:56] LABS: BUN/Creatinine Ratio 25; Blood Urea Nitrogen 10 mg/dL (7-17); Calcium 8.7 mg/dL (8.4-10.2); Hemolysis Index 2
[2022-01-30] MEDS: ONDANSETRON 4 MG/2 ML INJ IV PRN ×2 (09:29→19:06)
[2022-01-30] MEDS ORDERED: MAGNESIUM SULFATE 2 GM/50 ML BAG IV ONE (10:00)
[2022-01-30] MEDS ORDERED: CLOPIDOGREL 300 MG TAB PO NR (10:47)
[2022-01-30] MEDS ORDERED: ASPIRIN 325 MG TAB PO ONE (10:47)
[2022-01-30] MEDS: MAGNESIUM OXIDE 400 MG TAB PO SCH (10:57)
[2022-01-30] MEDS: FAMOTIDINE 20 MG TAB PO SCH ×2 (10:57→22:44)
--- NOTE | 2022-01-30 13:53 | Consultation ---
History of Present Illness Consult date: 01/30/22 Requesting physician: RAJEEV HUBER History of present illness: Patient is a 51-year-old female with a past medical history of hypertension, coronary artery disease s/p STEMI 12/27/2021 (DAPT therapy aspirin and Plavix), diabetes, anxiety, who presents with a complaint of chest pain intermittently x1 however worsened in the last 2 days and came to the ED for further evaluation. Patient reports that she took nitro with no relief of symptoms. Patient describes chest pain as sharpness and pressure. She initially rated pain at 8 out of 10 however at time of interview she says it is 4 out of 10. She states pain is worse with palpation and deep breathing. She does report several days ago she did have nausea and vomiting but has not had any since. Patient reports medication compliance with DAPT therapy. Of note patient states that she is currently being ruled out for breast cancer. She also states that about a week ago she had a fall and that is when she developed her chest pain. Patient denies shortness of breath, orthopnea, palpitations, lightheadedness, or diaphoresis. Patient is previously unknown to our practice however patient reports following with [facility]. Cardiology consulted for chest pain. Past History Past Medical History: acute [place], CAD, cancer, diabetes, hypertension, hyperlipidemia Past Surgical History: Other (Patient reports multiple spinal surgery) Social history: denies: smoking Family history: CAD, cancer, hypertension Medications and Allergies Allergies Allergy/AdvReac Type Severity Reaction Status Date / Time ciprofloxacin [From Cipro] Allergy Hives Verified 01/29/22 15:14 ciprofloxacin HCl Allergy Hives Verified 01/29/22 15:14 [From Cipro] aspirin AdvReac Unknown Verified 01/30/22 11:10 Home Medications Medication Instructions Recorded Confirmed Last Taken Type Acetaminophen 500 mg PO Q8H PRN #30 tablet 12/18/17 01/30/22 Unknown Rx Cyclobenzaprine HCl [Flexeril 5 MG 5 mg PO QHS #10 tab 12/18/17 01/30/22 Unknown Rx TAB] predniSONE [Deltasone] 20 mg PO DAILY #5 tablet 05/11/18 01/30/22 Unknown Rx Ondansetron [Zofran Odt] 4 mg PO Q8HR PRN #14 tab.rapdis 07/02/21 01/30/22 Unknown Rx oxyCODONE /ACETAMINOPHEN [Percocet 1 tab PO Q6HR PRN #14 tablet 07/02/21 01/30/22 Unknown Rx 5/325] metFORMIN 500 mg PO BID 01/30/22 01/30/22 Unknown History Active Meds: Active Medications Acetaminophen (Acetaminophen 325 Mg Tab) 650 mg PO Q4H PRN PRN Reason: Pain MILD(1-3)/Fever >100.5/[place] Aspirin (Aspirin 81 Mg Tab Chew) 81 mg PO QDAY [facility] Atorvastatin Calcium (Atorvastatin 40 Mg Tab) 80 mg PO QHS [facility] Clopidogrel Bisulfate (Clopidogrel 300 Mg Tab) 300 mg PO ONCE NR Stop: 01/30/22 18:00 Last Admin: 01/30/22 12:48 Dose: 300 mg Clopidogrel Bisulfate (Clopidogrel 75 Mg Tab) 75 mg PO QDAY [facility] Cyclobenzaprine HCl (Cyclobenzaprine 10 Mg Tab) 5 mg PO QHS [facility] Famotidine (Famotidine 20 Mg Tab) 20 mg PO BID [facility] Last Admin: 01/30/22 10:57 Dose: 20 mg Insulin Human Regular (Insulin Regular, Human 100 Units/1 Ml) 0 units SUB-Q ACHS [facility]; Protocol Last Admin: 01/30/22 11:30 Dose: 4 units Magnesium Oxide (Magnesium Oxide 400 Mg Tab) 400 mg PO QDAY [facility] Last Admin: 01/30/22 10:57 Dose: 400 mg Metoclopramide HCl (Metoclopramide 10 Mg/2 Ml Inj) 10 mg IV Q6H PRN PRN Reason: Nausea And Vomiting Last Admin: 01/30/22 12:52 Dose: 10 mg Metoprolol Tartrate (Metoprolol Tartrate 25 Mg Tab) 25 mg PO BID [facility] Morphine Sulfate (Morphine 2 Mg/1 Ml Inj) 2 mg IV Q4H PRN PRN Reason: Pain , Severe (7-10) Last Admin: 01/30/22 12:52 Dose: 2 mg Nitroglycerin (Nitroglycerin 0.4 Mg Tab Subl) 0.4 mg SL .Q5MIN PRN PRN Reason: Chest Pain Ondansetron HCl (Ondansetron 4 Mg/2 Ml Inj) 4 mg IV Q8H PRN PRN Reason: Nausea And Vomiting Last Admin: 01/30/22 09:29 Dose: 4 mg Oxycodone/Acetaminophen (Oxycodone /Acetaminophen 5-325mg Tab) 1 tab PO Q6H PRN PRN Reason: Pain, Moderate (4-6) Sodium Chloride (Sodium Chloride 0.9% 10 Ml Flush Syringe) 10 ml IV BID RAÚL Last Admin: 01/30/22 10:57 Dose: 10 ml Sodium Chloride (Sodium Chloride 0.9% 10 Ml Flush Syringe) 10 ml IV PRN PRN PRN Reason: LINE FLUSH Review of Systems Constitutional: no weight loss, no weight gain Ears, nose, mouth and throat: no sinus pressure, no sinus pain Cardiovascular: chest pain, no palpitations, no rapid/irregular heart beat, no shortness of breath, no dyspnea on exertion Respiratory: no shortness of breath, no dyspnea on exertion Gastrointestinal: nausea, vomiting Musculoskeletal: no neck stiffness, no neck pain Integumentary: no rash, no pruritis Neurological: weakness (Leg weakness), no head injury, no transient paralysis Psychiatric: anxiety, no memory loss Endocrine: no cold intolerance, no heat intolerance Hematologic/Lymphatic: no easy bruising, no easy bleeding Physical Examination Vital Signs Temp Pulse Resp BP Pulse Ox 97.8 F 74 18 120/72 98 01/29/22 15:11 01/29/22 15:11 01/29/22 15:11 01/29/22 15:11 01/29/22 15:11 General appearance: no acute distress HEENT: Positive: PERRL Neck: Positive: trachea midline Cardiac: Positive: Reg Rate and Rhythm Lungs: Positive: Normal Breath Sounds Neuro: Positive: Grossly Intact Abdomen: Positive: Soft Skin: Negative: Rash, Suspicious Lesions, Ulceration Extremities: Present: upper extr. pulses. Absent: edema Results 01/29/22 16:42 01/30/22 08:13 Cardiac Enzymes 01/29/22 Range/Units 16:42 AST 12 (5-40) units/L Coagulation 01/29/22 Range/Units 16:42 PT 12.7 (12.2-14.9) Sec. INR 0.87 (0.87-1.13) CBC 01/29/22 Range/Units 16:42 WBC 4.9 (4.5-11.0) K/mm3 RBC 4.19 (3.65-5.03) M/mm3 Hgb 12.2 (10.1-14.3) gm/dl Hct 36.8 (30.3-42.9) % Plt Count 181 (140-440) K/mm3 Lymph # (Auto) 1.4 (1.2-5.4) K/mm3 [place] # (Auto) 0.3 (0.0-0.8) K/mm3 Eos # (Auto) 0.1 (0.0-0.4) K/mm3 Baso # (Auto) 0.0 (0.0-0.1) K/mm3 Comprehensive Metabolic Panel 01/29/22 01/30/22 Range/Units 16:42 08:13 Sodium 138 138 (137-145) mmol/L Potassium 4.2 4.0 (3.6-5.0) mmol/L Chloride 99.9 101.7 (98-107) mmol/L Carbon Dioxide 26 29 (22-30) mmol/L BUN 14 10 (7-17) mg/dL Creatinine 0.6 0.4 L (0.6-1.2) mg/dL Glucose 452 H 294 H (65-100) mg/dL Calcium 8.9 8.7 (8.4-10.2) mg/dL AST 12 (5-40) units/L ALT 17 (7-56) units/L Alkaline Phosphatase 126 (35-129) units/L Total Protein 6.2 L (6.3-8.2) g/dL Albumin 4.1 (3.9-5) g/dL - Imaging and Cardiology Echo: report reviewed Cardiac cath: report reviewed EKG interpretations - Telemetry EKG Rhythm: Sinus Rhythm - EKG Sinus rhythms and dysrhythmias: sinus rhythm Assessment and Plan Patient is a 51-year-old female with a past medical history of hypertension, coronary artery disease s/p STEMI 12/27/2021 (DAPT therapy aspirin and Plavix), diabetes, anxiety, who presents with a complaint of chest pain intermittently x1 however worsened in the last 2 days and came to the ED for further evaluation Atypical chest pain Coronary artery disease s/p STEMI and PCI(12/27/2021) Hypertension Diabetes Breast cancer? Cardiac Cath 12/27/2021- 1. Left main artery: 0 % 2. Proximal left anterior descending artery: 0 % 3. Mid-Distal left anterior descending artery: The midportion of the vessel appears to be intramyocardial with intermittent bleeding of the vessel during systole. This was difficult to fully assess given the patient's sinus tac hycardia , 20%-30% 4. Circumflex/obtuse marginal artery: Dominant vessel, PL OM 99% with GREGG II flow 5. Right coronary artery: 0 % small, nondominant 6. Coronary dominance: Left 7. Left ventricle ejection fraction: 50-55 % 8. Left ventricle wall motion: Apical lateral severe hypokinesis 9. LVEDP: 15 mm Hg 10. LV-Aorta gradient: 0 mm Hg Successful treatment of the patient's inferior ST elevation TN with primary PCI of the PL OM with a drug-eluting stent as detailed above. Minimal residual c oronary disease in other vessels. Echo 12/28/2021-LV cavity size is normal with basal septal hypertrophy. LV systolic function is normal with an estimated LVEF 50-55%. Mid-distal inferolateral and mid-distal anterolateral fisher are hypokinetic. No LV thrombus noted. RV cavity size is normal. RV systolic function is normal. Normal biatrial size. No significant valvular dysfunction. Unable to assess RVSP due to insufficient TR signal. Trivial pericardial effusion. Normal aortic root size. Plan: EKG shows sinus rhythm no acute ischemic changes. Troponin negative x2. Patient's chest pain is atypical worse inspiration and reproducible with palpation We will plan for stress test in the a.m. Patient to be n.p.o. after midnight Unclear if patient received her aspirin or Plavix yesterday. We will reload patient with aspirin 325 and Plavix Resume aspirin 81 mg p.o. daily and Plavix 75 mg p.o. daily tomorrow Resume outpatient metoprolol 25 mg p.o. twice daily and atorvastatin 80 mg p.o. nightly Plan of care discussed with patient who verbalized understanding and acknowledgment Patient seen in conjunction with Dr. Hurst who agrees with this plan of care - Patient Problems (1) Atypical chest pain Current Visit: Yes Status: Acute (2) Coronary artery disease Current Visit: Yes Status: Acute Qualifiers: Coronary Disease-Associated Artery/Lesion type: [place] artery [place] vs. transplanted heart: [place] heart Associated angina: with stable angina Qualified Code(s): I25.118 - Atherosclerotic heart disease of [place] coronary artery with other forms of angina pectoris (3) Hyperglycemia Current Visit: Yes Status: Acute (4) Traumatic ecchymosis of right forearm Current Visit: Yes Status: Acute (5) Generalized anxiety disorder Current Visit: Yes Status: Chronic (6) T2DM (type 2 diabetes mellitus) Current Visit: Yes Status: Chronic Qualifiers: Diabetes mellitus fdc insulin use: unspecified fdc insulin use status
[2022-01-30] MEDS ORDERED: ALBUTEROL 2.5 MG/3 ML NEBU IH PRN (21:05)
[2022-01-30] MEDS: INSULIN LISPRO 100 UNIT/ML SUB-Q SCH (22:00)
[2022-01-30] MEDS ORDERED: CYCLOBENZAPRINE 10 MG TAB PO SCH (22:00)
[2022-01-30] MEDS: METOPROLOL TARTRATE 25 MG TAB PO SCH (22:47)
[2022-01-31] MEDS: MORPHINE 2 MG/1 ML INJ IV PRN ×2 (00:20→06:25)
[2022-01-31] MEDS: ONDANSETRON 4 MG/2 ML INJ IV PRN (00:40)
[2022-01-31 06:23] LABS: Basophils % (Auto) 0.6 % (0.0-1.8); Eosinophils # (Auto) 0.1 K/mm3 (0.0-0.4); Eosinophils % (Auto) 1.7 % (0.0-4.3); Hematocrit 35.4 % (30.3-42.9); Lymphocytes # (Auto) 1.1 K/mm3 (1.2-5.4); Lymphocytes % (Auto) 23.4 % (13.4-35.0); Mean Corpuscular HGB Conc 34 % (30-34); Mean Corpuscular Volume 87 fl (79-97); Monocytes # (Auto) 0.3 K/mm3 (0.0-0.8); Monocytes % (Auto) 5.7 % (0.0-7.3); Platelet Count 164 K/mm3 (140-440); Red Blood Count 4.06 M/mm3 (3.65-5.03); Red Cell Distribution Width 13.7 % (13.2-15.2)
[2022-01-31 06:46] LABS: Alanine Aminotransferase 16 units/L (7-56); Albumin 3.8 g/dL (3.9-5); Blood Urea Nitrogen 12 mg/dL (7-17); Calcium 8.6 mg/dL (8.4-10.2); Hemolysis Index 2
[2022-01-31] MEDS ORDERED: REGADENOSON 0.4 MG/5 ML INJ IV ONE ×2 (06:47→09:40)
[2022-01-31 06:51] LABS: BUN/Creatinine Ratio 24
--- NOTE | 2022-01-31 08:24 | Progress Note ---
Assessment and Plan - Patient Problems (1) Acute coronary syndrome Current Visit: Yes Status: Acute Plan to address problem: Serial troponins Lexiscan in a.m. 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 transplanted heart: [place] heart Associated angina: with stable angina Qualified Code(s): I25.118 - Atherosclerotic heart disease of [place] coronary artery with other forms of angina pectoris Plan to address problem: Patient had a stent placed recently On aspirin (4) Generalized anxiety disorder Current Visit: Yes Status: Chronic Plan to address problem: Anxiolytics as necessary (5) Asthma Current Visit: Yes Status: Chronic Qualifiers: Asthma severity: unspecified severity Asthma complication type: unspecified Plan to address problem: Albuterol MDI as needed basis (6) Hypomagnesemia Current Visit: Yes Status: Acute Plan to address problem: Supplemented (7) DVT prophylaxis Current Visit: Yes Status: Acute Plan to address problem: On heparin and GI prophylaxis (8) Advance care planning Current Visit: Yes Status: Acute Subjective Date of service: 01/30/22 Objective - Constitutional Vitals: Vital Signs - 12hr 01/30/22 01/30/22 01/30/22 21:35 21:53 22:47 Temperature 98.4 F Pulse Rate 101 H 101 H Pulse Rate [ 94 H Anterior Bilateral Throughout] Respiratory 18 Rate Respiratory 20 Rate [Anterior Bilateral Throughout] Blood Pressure 121/80 121/80 O2 Sat by Pulse 95 Oximetry 01/31/22 01/31/22 03:00 04:15 Temperature 98.6 F Pulse Rate 75 Pulse Rate [ Anterior Bilateral Throughout] Respiratory 18 Rate Respiratory Rate [Anterior Bilateral Throughout] Blood Pressure 108/71 O2 Sat by Pulse 95 93 Oximetry General appearance: Present: no acute distress, well-nourished - EENT Eyes: PERRL, EOM intact ENT: hearing intact, clear oral mucosa Ears: bilateral: normal - Neck Neck: supple, normal ROM - Respiratory Respiratory effort: normal Respiratory: bilateral: CTA - Breasts Breasts: normal - Cardiovascular Rhythm: regular Heart Sounds: Present: S1 & S2. Absent: gallop, rub Extremities: pulses intact, No edema, normal color, Full ROM - Gastrointestinal General gastrointestinal: Present: soft, non-tender, non-distended, normal bowel sounds - Genitourinary Female genitourinary: normal - Integumentary Integumentary: clear, warm, dry - Musculoskeletal Musculoskeletal: 1, strength equal bilaterally - Neurologic Neurologic: moves all extremities - Psychiatric Psychiatric: memory intact, appropriate mood/affect, intact judgment & insight - Labs CBC & Chem 7: 01/31/22 05:50 01/31/22 05:50 Labs: Abnormal lab results 01/30/22 01/30/22 01/30/22 Range/Units 07:18 08:13 11:01 Lymph # (Auto) (1.2-5.4) K/mm3 Sodium (137-145) mmol/L Creatinine 0.4 L (0.6-1.2) mg/dL Glucose 294 H (65-100) mg/dL POC Glucose 276 H 277 H (70-105) mg/dL Total Protein (6.3-8.2) g/dL Albumin (3.9-5) g/dL 01/30/22 01/30/22 01/31/22 Range/Units 15:58 21:58 05:50 Lymph # (Auto) 1.1 L (1.2-5.4) K/mm3 Sodium (137-145) mmol/L Creatinine (0.6-1.2) mg/dL Glucose (65-100) mg/dL POC Glucose 277 H 317 H (70-105) mg/dL Total Protein (6.3-8.2) g/dL Albumin (3.9-5) g/dL 01/31/22 01/31/22 Range/Units 05:50 07:36 Lymph # (Auto) (1.2-5.4) K/mm3 Sodium 135 L (137-145) mmol/L Creatinine 0.5 L (0.6-1.2) mg/dL Glucose 294 H (65-100) mg/dL POC Glucose 260 H (70-105) mg/dL Total Protein 5.7 L (6.3-8.2) g/dL Albumin 3.8 L (3.9-5) g/dL HEART Score - HEART Score EKG: Non-specific Age: 45-65 Risk factors: 1-2 risk factors Troponin: Troponin T < 0.010 ng/mL (0.00-0.029) 01/30/22 08:13 Troponin: < normal limit - Critical Actions Critical Actions: 4-6 pts:12-16.6% risk of adverse cardiac event. Should be admitted
[2022-01-31] MEDS: CLOPIDOGREL 75 MG TAB PO SCH ×2 (10:18→14:14)
[2022-01-31] MEDS: MAGNESIUM OXIDE 400 MG TAB PO SCH ×2 (10:18→14:15)
[2022-01-31] MEDS: FAMOTIDINE 20 MG TAB PO SCH ×2 (10:18→14:13)
[2022-01-31] MEDS: ASPIRIN 81 MG TAB CHEW PO SCH ×2 (10:18→14:13)
[2022-01-31] MEDS: METOPROLOL TARTRATE 25 MG TAB PO SCH ×2 (10:18→14:12)
[2022-01-31] MEDS: INSULIN LISPRO 100 UNIT/ML SUB-Q SCH ×3 (10:18→17:18)
--- NOTE | 2022-01-31 10:21 | Electrocardiograph Report ---
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
--- NOTE | 2022-01-31 12:13 | Progress Note ---
Assessment and Plan Patient is a 51-year-old female with a past medical history of hypertension, coronary artery disease s/p STEMI 12/27/2021 (DAPT therapy aspirin and Plavix), diabetes, anxiety, who presents with a complaint of chest pain intermittently x1 however worsened in the last 2 days and came to the ED for further evaluation Atypical chest pain Coronary artery disease s/p STEMI and PCI(12/27/2021) Hypertension Diabetes Breast cancer? Cardiac Cath 12/27/2021- 1. Left main artery: 0 % 2. Proximal left anterior descending artery: 0 % 3. Mid-Distal left anterior descending artery: The midportion of the vessel appears to be intramyocardial with intermittent bleeding of the vessel during systole. This was difficult to fully assess given the patient's sinus tachycardia , 20%-30% 4. Circumflex/obtuse marginal artery: Dominant vessel, PL OM 99% with GREGG II flow 5. Right coronary artery: 0 % small, nondominant 6. Coronary dominance: Left 7. Left ventricle ejection fraction: 50-55 % 8. Left ventricle wall motion: Apical lateral severe hypokinesis 9. LVEDP: 15 mm Hg 10. LV-Aorta gradient: 0 mm Hg Successful treatment of the patient's inferior ST elevation UT with primary PCI of the PL OM with a drug-eluting stent as detailed above. Minimal residual coronary disease in other vessels. Echo 12/28/2021-LV cavity size is normal with basal septal hypertrophy. LV systolic function is normal with an estimated LVEF 50-55%. Mid-distal inferolateral and mid-distal anterolateral fisher are hypokinetic. No LV thrombus noted. RV cavity size is normal. RV systolic function is normal. Normal biatrial size. No significant valvular dysfunction. Unable to assess RVSP due to insufficient TR signal. Trivial pericardial effusion. Normal aortic root size. Plan: Patient currently chest pain-free. Patient for Lexiscan MPI stress test this morning. Patient had normal stress test with no signs of ischemia. See report for full details Continue aspirin 81 mg p.o. daily and Plavix 75 mg p.o. daily tomorrow Continue metoprolol 25 mg p.o. twice daily and atorvastatin 80 mg p.o. nightly Stressed importance of DAPT therapy with patient who verbalized understanding and Plan of care discussed with patient who verbalized understanding and acknowledgment Cardiac status otherwise stable for discharge Patient patient should follow-up with her primary fish filleter at [facility] in 1 to 2 weeks or if patient chooses patient may follow-up with our group, [facility], in 1 to 2 weeks after discharge. Phone #[phone] Patient seen in conjunction with Dr. Hurst who agrees with this plan of care - Patient Problems (1) Atypical chest pain Current Visit: Yes Status: Acute (2) Coronary artery disease Current Visit: Yes Status: Acute Qualifiers: Coronary Disease-Associated Artery/Lesion type: [place] artery [place] vs. 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 Lots of artifact on monitor however patient appears to be sinus in 70s with no events Objective Vital Signs Temp Pulse Pulse Resp Resp BP Pulse Ox 01/31/22 09:53 126/75 01/31/22 09:52 138/78 01/31/22 09:51 125/80 01/31/22 09:50 142/75 01/31/22 09:49 136/71 01/31/22 09:48 122/74 01/31/22 09:40 125/80 01/31/22 09:20 135/83 01/31/22 09:06 143/70 01/31/22 04:15 98.6 F 75 18 108/71 93 01/31/22 03:00 95 01/30/22 22:47 101 H 121/80 01/30/22 21:53 98.4 F 101 H 18 121/80 95 01/30/22 21:35 94 H 20 01/30/22 16:00 98.4 F 91 H 18 104/59 97 01/30/22 15:00 98 - Physical Examination General: No Apparent Distress HEENT: Positive: PERRL Neck: Positive: trachea midline Cardiac: Positive: Reg Rate and Rhythm Lungs: Positive: Normal Breath Sounds Neuro: Positive: Grossly Intact Abdomen: Positive: Soft Skin: Negative: Rash, Suspicious Lesions, Ulceration Extremities: Present: upper extr. pulses. Absent: edema - Labs and Meds Cardiac Enzymes 01/31/22 Range/Units 05:50 AST 13 (5-40) units/L CBC 01/31/22 Range/Units 05:50 WBC 4.5 (4.5-11.0) K/mm3 RBC 4.06 (3.65-5.03) M/mm3 Hgb 12.0 (10.1-14.3) gm/dl Hct 35.4 (30.3-42.9) % Plt Count 164 (140-440) K/mm3 Lymph # (Auto) 1.1 L (1.2-5.4) K/mm3 [place] # (Auto) 0.3 (0.0-0.8) K/mm3 Eos # (Auto) 0.1 (0.0-0.4) K/mm3 Baso # (Auto) 0.0 (0.0-0.1) K/mm3 Comprehensive Metabolic Panel 01/31/22 Range/Units 05:50 Sodium 135 L (137-145) mmol/L Potassium 4.3 (3.6-5.0) mmol/L Chloride 100.8 (98-107) mmol/L Carbon Dioxide 29 (22-30) mmol/L BUN 12 (7-17) mg/dL Creatinine 0.5 L (0.6-1.2) mg/dL Glucose 294 H (65-100) mg/dL Calcium 8.6 (8.4-10.2) mg/dL AST 13 (5-40) units/L ALT 16 (7-56) units/L Alkaline Phosphatase 109 (35-129) units/L Total Protein 5.7 L (6.3-8.2) g/dL Albumin 3.8 L (3.9-5) g/dL - Imaging and Cardiology EKG: report reviewed (Sinus rhythm no acute ST-T wave changes) Echo: report reviewed Cardiac cath: report reviewed - Telemetry EKG Rhythm: Sinus Rhythm - EKG Sinus rhythms and dysrhythmias: sinus rhythm
[2022-01-31 13:23] VITALS: BP 119/70
--- NOTE | 2022-01-31 17:26 | Discharge Summary ---
Providers - Providers Date of Admission: 01/29/22 20:08 Date of discharge: 01/31/22 Attending physician: RAJEEV HUBER 01/30/22 11:19 Consult to Physician [CONS] Routine Comment: Consulting Provider: PARISA VASQUEZ Physician Instructions: Reason For Exam: chest pain Primary care physician: IRIDOLOGIST Hospitalization Condition: Good Disposition: 01 HOME / SELF CARE / HOMELESS - Discharge Diagnoses (1) Acute coronary syndrome Status: Acute (2) T2DM (type 2 diabetes mellitus) Status: Chronic Qualifiers: Diabetes mellitus alf insulin use: unspecified alf insulin use status (3) Coronary artery disease Status: Acute Qualifiers: Coronary Disease-Associated Artery/Lesion type: [place] artery [place] vs. transplanted heart: [place] heart Associated angina: with stable angina Qualified Code(s): I25.118 - Atherosclerotic heart disease of [place] coronary artery with other forms of angina pectoris (4) Generalized anxiety disorder Status: Chronic (5) Asthma Status: Chronic Qualifiers: Asthma severity: unspecified severity Asthma complication type: unspecified (6) Hypomagnesemia Status: Acute (7) DVT prophylaxis Status: Acute (8) Advance care planning Status: Acute Exam - Constitutional Vitals: Temp Pulse Resp BP Pulse Ox 98.8 F 84 15 119/70 96 01/31/22 13:08 01/31/22 13:08 01/31/22 13:08 01/31/22 13:08 01/31/22 13:08 Plan
== END 2022-01-31 18:30 | disposition home or self-care (01) ==
LOC: ED 14:55 → 3A 20:08
PROVIDERS: ADMIT Internal Medicine; ATTEND Internal Medicine
DX: I24.9 Acute ischemic heart disease, unspecified (principal); E11.65 Type 2 diabetes mellitus with hyperglycemia; I25.118 Atherosclerotic heart disease of native coronary artery with other forms of angina pectoris; S50.11XA Contusion of right forearm, initial encounter; R07.89 Other chest pain; I10 Essential (primary) hypertension; E78.5 Hyperlipidemia, unspecified; E83.42 Hypomagnesemia; J45.909 Unspecified asthma, uncomplicated; F41.9 Anxiety disorder, unspecified; Z98.891 History of uterine scar from previous surgery; Z90.710 Acquired absence of both cervix and uterus; Z79.899 Other long term (current) drug therapy; Z98.890 Other specified postprocedural states; Z79.84 Long term (current) use of oral hypoglycemic drugs; Z79.4 Long term (current) use of insulin
CPT/HCPCS: 36415; 71045; 73090; 78452; 80048; 80053; 82550; 82805; 82962; 83036; 83735; 84443; 84484; 84702; 85025; 85610; 93005; 93017; 94640; 96361; 96365; 96366; 96372; 96375; 96376; 99285; A9502; C9113; G0378; J2270; J2405; J2765; J2785; J3475; J7030; J7040; 80320; Q9967; G0480; J1815